=== PATIENT | male | born 1950 | race Caucasian/White ===

== ENCOUNTER → 2017-10-08 | Outpatient (CLI) | payer MEDICARE, OTHER, SELFPAY | PROVIDERS: Family Provider Family Medicine; Visit Provider Internal Medicine Cardiovascular Disease | DX: R06.02 Shortness of breath (principal); J44.9 Chronic obstructive pulmonary disease, unspecified; R53.82 Chronic fatigue, unspecified | CPT/HCPCS: 36415; 85651; 86038; 86431; 93017; 93306; 94060; 94640; 94727; 94729 ==

== ENCOUNTER → 2017-11-07 06:11 | Outpatient (CLI) | payer MEDICARE, OTHER, SELFPAY ==
--- NOTE | 2017-11-07 06:22 | NM_ITS ---
History and Indications: Hypertension, tobacco use, family history and fatigue Procedure: Patient exercised on Jose Rafael protocol, resting heart rate was 55 bpm, resting blood pressure 146/79, with exercise maximum heart rate achieved was 120 beats per minutes, which is equal to 79% of the maximum predicted heart rate and a blood pressure was 205/86. Test was started due to shortness of breath and fatigue, patient has good exercise capacity achieved 10.1mets of workload on treadmill, the blood pressure response to exercise was hypertensive. Patient did not achieve the target heart rate. Electrocardiogram: Resting electrocardiogram showed the sinus rhythm, with exercise there is less than [address] segment depression noted from the baseline EKG. More pronounced in the recovery. The EKG portion of the exercise Myoview is positive for ischemia. Cardiac stress and resting SPECT images: Cardiac stress and resting SPECT images were obtained using technetium 99 Myoview 10.7 mCi at rest and 31.7 mCi at stress, gated SPECT further analysis of segmental wall motion and calculation of the ejection fraction also done. Cardiac stress and rest reduced tracer activity in the inferior and posterobasal wall which partially improves on the resting images suggestive of scar, computer derived ejection fraction is 57% moderate inferior and posterobasal wall hypokinesis. Right ventricle is mildly enlarged with normal contractility. Conclusion: 1. The EKG portion of the exercise Myoview is positive for ischemia, patient has good exercise capacity achieved 10.1mets of workload on treadmill, the blood pressure response to exercise was hypertensive. Patient did not achieve the target heart rate. Test was started due to shortness of breath. 2. Scintigraphic evidence of mixed ischemia and scar involving the inferior and posterobasal wall. Computer derived ejection fraction is 57% with segmental wall motion abnormality described above, right ventricle is mildly enlarged with normal contractility. 3. Abnormal exercise Myoview study.
--- NOTE | 2017-11-07 09:12 | HMH.ITSHM ---
escitalopram, hctz, amlodipine
== END ==
PROVIDERS: Family Provider Family Medicine; PCP Family Medicine; Visit Provider Internal Medicine Cardiovascular Disease
DX: R53.82 Chronic fatigue, unspecified (principal); J44.9 Chronic obstructive pulmonary disease, unspecified; R94.39 Abnormal result of other cardiovascular function study; R06.02 Shortness of breath
CPT/HCPCS: 78452; 93017; A9502

== ENCOUNTER 2020-10-01 10:38 | Emergency (ER) | payer MEDICARE, OTHER, SELFPAY ==
[2020-10-01 10:53] VITALS: BP 153/82; PULSE 100; RESP 18; TEMP 37; O2SAT 98; BMI 27.3
--- NOTE | 2020-10-01 10:58 | HMH.EDGENADL ---
ED Disposition Clinical Impression: Pancreatitis, acute Qualifiers: Pancreatitis type: alcohol induced Acute pancreatitis complication: unspecified Qualified Code(s): K85.20 - Alcohol induced acute pancreatitis without necrosis or infection Disposition: Home, Self-Care Condition on Discharge: Good Instructions: DI for Acute Abdomen Additional Instructions: Please follow a clear liquid diet over the next several days and use nausea medicine. Try to avoid alcohol intake. Immediately return to our emergency department if any intractable nausea/vomiting, recurrent pain, fever/chills, concern for dehydration, change in activity level, or any other new concerning symptoms. Referrals: Iris Westbrook MD [Primary Care Provider] - - Critical Care Critical Care Time: No Attestation: On , the high probability of a clinically significant, sudden or life threatening deterioration of the following system(s) required my full and direct attention, intervention and personal management. The time I documented below is in addition to time spent performing reported procedures but includes the following listed in this critical care notation. Medical Decision Making - Medical Records Medical records reviewed: Yes: I reviewed the patient's medical records. - Moise Inquiry Pt receiving controlled substance: Yes Moise was queried for this patient: No (morphine for acute abd pain in the ER) Reason not queried -: Emergent pt cond-no time Risks and benefits of using a controlled substance: were discussed with pt by me Vital Signs: 10/01/20 10:53 10/01/20 12:50 Temperature 98.6 F Temperature Source Oral Pulse Rate [Right Radial] 100 H 89 Respiratory Rate 18 18 Blood Pressure [Right Arm] 153/82 H 145/84 H Blood Pressure Mean [Right Arm] 105 104 Blood Pressure Source [Right Arm] Automatic Cuff Automatic Cuff Blood Pressure Position [Right Arm] Sitting Sitting 02 Sat by Pulse Oximetry 98 95 Oxygen Delivery Method Room Air Room Air - Lab Data Lab Results 10/01/20 11:11: Urine Color Yellow, Urine Appearance Clear, Urine pH 6.5, Ur Specific [place] 1.020, Urine Protein Negative, Urine Glucose (UA) Negative, Urine Ketones Negative, Urine Blood Negative, Urine Nitrate Negative, Urine Bilirubin Negative, Urine Urobilinogen 1.0, Ur Leukocyte Esterase Trace, Urine RBC None, Urine WBC 5-10, Ur Squamous Epith Cells 10-20, Urine Bacteria None, Urine Mucus 1+ 10/01/20 11:11: WBC 13.1 H, RBC 5.71, Hgb 20.2 H*, Hct 59.5 H, MCV 104.3 H, MCH 35.4 H, MCHC 34.0, RDW 16.2, Plt Count 217, MPV 8.2, Neut % (Auto) 85.5 H, Lymph % (Auto) 8.3 L, [place] % (Auto) 5.2, Eos % (Auto) 0.7, Baso % (Auto) 0.4, Neut # (Auto) 11.2 H, Lymph # (Auto) 1.1, [place] # (Auto) 0.7, Eos # (Auto) 0.1, Baso # (Auto) 0.1, Total Counted 100, Neutrophils % (Manual) 89 H, Lymphocytes % (Manual) 6 L, Monocytes % (Manual) 5, Platelet Estimate Normal, Anisocytosis 1+, Macrocytosis 1+ 10/01/20 11:11: Sodium 135 L, Potassium 3.4 L, Chloride 100, Carbon Dioxide 28, Anion Gap 10.4, BUN 14, Creatinine 0.70, Estimated Creat Clear 78, Estimated GFR 111, Est GFR ( Amer) 135, Glucose 120 H, Calcium 11.1 H, Total Bilirubin 2.2 H, AST 22, ALT 18, Alkaline Phosphatase 123, Total Protein 7.3, Albumin 4.0, Globulin 3.3 H, Albumin/Globulin Ratio 1.2 10/01/20 11:11: Lipase 1781 H 10/01/20 11:50: Lactate 1.6 Result diagrams: 10/01/20 11:11 10/01/20 11:11 Orders (Tests/Meds): ED MEDICATIONS Discontinued Medications Generic Name Dose Route Start Last Admin Trade Name Freq PRN Reason Stop Dose Admin Lactated Ringer's 1,000 mls @ 999 mls/hr 10/01/20 11:15 10/01/20 12:11 Lactated Ringer's 1000 Ml Bag IV 10/01/20 12:15 999 mls/hr .Q1H1M IBAN Administration Iopamidol 75 ml 10/01/20 12:12 10/01/20 12:13 Iopamidol-370 (76%);100ml Bottle IV 10/01/20 12:13 75 ml ONCE ONE Administration Ondansetron HCl 4 mg 10/01/20 11:15 10/01/20 12:11 Ondansetron 4mg/2ml Vial IV 10/01/20 11:1
[2020-10-01 11:11] LABS: Appearance,Urine CLEAR (Clear); Bilirubin,Urine Negative (Negative); Blood, Urine Negative (Negative); Color,Urine YELLOW (Yellow); Glucose,Urine (UA) Negative (Negative); Ketones,Urine Negative (Negative); Leukocyte Esterase,Urine TRACE (Negative); Microscopic, Urine URINE MICROSCOPIC (MICROSCOPIC); Nitrate,Urine Negative (Negative); PH,Urine 6.5 (5.0-8.5); Protein,Urine Negative (Negative)
--- NOTE | 2020-10-01 11:13 | CT_ITS ---
PROCEDURE: CT ABDOMEN PELVIS W CON CLINICAL INDICATION: abdominal pain epigastric/left sided pain w/hernia COMPARISON: CT ABDPELW/O CT ABD PELVIS W/O CONTRAST from 04/29/2017 TECHNIQUE: IV Contrast: 75ML Isovue 350 Oral Contrast none given Axial images obtained with sagittal and coronal reformats. All CT scans at the facility use one or more dose reduction, viz: automated exposure control, ma/kV adjustment per patient size (including targeted exams where dose is matched to indication, i.e. head), or iterative reconstruction technique. FINDINGS: Lower thorax: No acute finding ABDOMEN: Liver: The liver is normal in size. There is a small hypodense lesion consistent with a hepatic cyst which actually appears smaller than seen on the previous CT scan abdomen pelvis 04/29/2017 Gallbladder: Nondistended. No radio opaque stones. Pancreas: The pancreas is normal overall size. There is moderate peripancreatic fat stranding around the distal body and tail extending to the left para renal fascia suggesting early acute pancreatitis. Spleen: unremarkable Adrenals: unremarkable Kidneys/ureters: The kidneys are normal in size and show symmetrical function both appearing normal. ABDOMEN & PELVIS: Stomach bowel: The stomach appears grossly normal. There is mild diffuse dilatation of the duodenal sweep with mild dilatation of the proximal jejunum likely reflecting a reflex ileus secondary to the inflammatory pancreatic changes. The mid and distal small bowel appear normal. There is scattered stool and gas seen throughout the colon. Peritoneum: No abnormal fluid collections. No obvious inflammatory changes. No free air. Lymph nodes: No enlarged lymph nodes apparent. Vasculature: There is prominent diffuse arthrosclerotic calcifications of the abdominal aorta and proximal common iliac arteries but there is no aneurysm. Bones: There are metallic brackets and pedicle screws fusing L 3 and L4. there are mild degenerate changes of both hips. PELVIS: Reproductive: unremarkable Bladder: The bladder is partially decompressed but appears normal. The prostate is markedly enlarged causing extrinsic mass effect on the base of the urinary bladder. There is a small right inguinal hernia containing mesenteric but no loops of bowel. Appendix: Unremarkable. No distention or periappendiceal phlegmonous change. IMPRESSION: Findings suggesting early acute pancreatitis involving the tail the pancreas with mild reflex ileus of the duodenal sweep and proximal jejunum Dictated by: Dr. Prashant Early MD 10/01/2020 12:25 Dr. Prashant Early MD in [place] 10/01/2020 12:25
[2020-10-01 11:16] LABS: Mucus,Urine 1+ /lpf
[2020-10-01 11:31] LABS: Eosinophils # 0.1 K/mm3 (0.0-0.4); Lymphocytes # 1.1 K/mm3 (0.7-4.5)
[2020-10-01 11:35] LABS: Basophils # 0.1 K/mm3 (0-0.2); Basophils % 0.4 % (0.1-2.0); Eosinophils % 0.7 % (0.1-12.0); Hematocrit 59.5 % (42.0-52.0); Lymphocytes % 8.3 % (10-50); Mean Corpuscular Hemoglobin 35.4 pg (27.0-31.2); Mean Corpuscular Volume 104.3 fl (80-94); Mean Platelet Volume 8.2 fl (7.4-10.4); Monocytes # 0.7 K/mm3 (0.1-1.0); Monocytes % 5.2 % (1.7-9.3); Neutrophils # 11.2 K/mm3 (1.8-7.8); Neutrophils % 85.5 % (37.0-80.0); Platelet Count 217 K/mm3 (142-424); Red Blood Count 5.71 M/mm3 (4.60-6.20); Red Cell Distribution Width 16.2 % (11.5-17.5); White Blood Count 13.1 K/mm3 (4.8-10.8)
[2020-10-01 11:36] LABS: Alanine Aminotransferase 18 U/L (12-78); Albumin/Globulin Ratio 1.2 (1.1-1.8); Alkaline Phosphatase 123 U/L (38-126); Anion Gap 10.4 mEq/L (5-15); Aspartate Amino Transferase 22 U/L (17-59); Bilirubin,Total 2.2 mg/dl (0.2-1.3); Blood Urea Nitrogen 14 mg/dl (9-20); Calcium 11.1 mg/dl (8.4-10.2); Carbon Dioxide 28 mmol/L (22.0-30.0); Chloride 100 mmol/L (98-107); Creatinine Clearance Estimated 78 mL/min (50-200); Estimated Glomerular Filt Rate 111 ml/min (>60); GFR (African American) 135 ML/MIN (>60); Globulin 3.3 g/dL (1.3-3.2); Glucose 120 mg/dl (74-100); Hemoglobin 20.2 g/dL (14.1-18.0); Lipase 1781 U/L (23-300); Potassium 3.4 mmoL/L (3.5-5.1); Sodium 135 mmol/L (136-145); Total Protein,Serum 7.3 g/dl (6.3-8.2)
--- NOTE | 2020-10-01 11:36 | PC.NURSE ---
critical high hgb notified to DAYSI MCQUEEN at this time
[2020-10-01 11:37] LABS: MANUAL DIFFERENTIAL MANUAL DIFFERENTIAL (MANUAL DIFF)
[2020-10-01 11:48] LABS: Anisocytosis 1+; Lymphocytes % 6 % (10-50); Macrocytosis 1+; Monocytes % 5 % (2-9); Neutrophils % 89 % (42-76); Platelet Estimate Normal; Total Cells Counted 100
--- NOTE | 2020-10-01 11:53 | PC.NURSE ---
PT GONE FOR CT
[2020-10-01 12:05] LABS: Lactic Acid 1.6 mmol/L (0.7-2.1)
--- NOTE | 2020-10-01 12:09 | PC.NURSE ---
pt return from CT
--- NOTE | 2020-10-01 12:27 | PC.NURSE ---
when administering medication IV would not flush, attempting to obtain new IV access at this time
[2020-10-01 12:50] VITALS: BP 145/84; PULSE 89; RESP 18; O2SAT 95
[2020-10-01 13:47] VITALS: BP 170/95; PULSE 80; RESP 17; TEMP 37.2; O2SAT 100
== END 2020-10-01 13:48 | disposition home or self-care (01) ==
PROVIDERS: Emergency Provider Emergency Medicine; PCP Nurse Practitioner
DX: K85.20 Alcohol induced acute pancreatitis without necrosis or infection (principal); F17.210 Nicotine dependence, cigarettes, uncomplicated; I10 Essential (primary) hypertension; F33.1 Major depressive disorder, recurrent, moderate; Z79.899 Other long term (current) drug therapy
CPT/HCPCS: 74177; 80053; 81001; 83605; 83690; 85007; 85025; 96365; 96375; 99283; J2405; Q9967

== ENCOUNTER → 2021-04-07 08:22 | Outpatient (CLI) | payer MEDICARE, OTHER, SELFPAY ==
--- NOTE | 2021-04-07 08:29 | MR_ITS ---
PROCEDURE INFORMATION: Exam: MR Lumbar Spine Without Contrast Exam date and time: 04/07/2021 8:29 AM Age: 70 years old Clinical indication: Low back pain and lumbago; Prior surgery; Surgery date: 6+ months; Patient HX: PT C/O lbp with bilateral lower extremity numbness, tingling, and pain. PT has HX of lumbar surgery x 3. ; Additional info: Lbp with HX of lumbar surgery TECHNIQUE: Imaging protocol: Multiplanar magnetic resonance images of the lumbar spine without intravenous contrast. COMPARISON: [facility] [place] 04/05/2015 9:59 AM FINDINGS: alignment is grossly normal. signal intensity within the bone marrow is normal. conus terminates at the mid aspect of L1. Soft tissues are unremarkable. surgical plate and pedicle screws L3 and L4 Interbody fusion L3-L4 and L4-L5 Severe neural foraminal narrowing L5-S1 left greater than right No marrow edema L1-L2: Central canal and neural foramina are widely patent. L2-L3: Central canal and neural foramina are widely patent. L3-L4: Central canal is normal. Narrowing of the left neural foramina with paucity of fat about the exiting nerve root. L4-L5: Broad-based annular disc bulge effaces the anterior aspect of the thecal sac mildly so. Moderate narrowing of the right neural foramina. Left neural foramina normal. L5-S1: Disc and or osteophytic complex effaces the anterior aspect of the thecal sac. Disc and or osteophytic complex narrows the neural foramina severely so left greater than right IMPRESSION: Prior interbody fusion L3-L4 and L4-L5. Severe neural foraminal narrowing L5-S1 left greater than right. See above.
== END ==
PROVIDERS: PCP Nurse Practitioner; Visit Provider Nurse Practitioner
DX: M54.5 Low back pain (principal); G89.29 Other chronic pain
CPT/HCPCS: 72148; 76376

== ENCOUNTER 2021-04-22 14:44 | Inpatient (IN) | payer MEDICARE, OTHER, SELFPAY ==
[2021-04-22 14:45] VITALS: BP 144/85; PULSE 92; RESP 16; TEMP 37.1; O2SAT 98; BMI 27.3
--- NOTE | 2021-04-22 15:03 | HMH.EDGENADL ---
ED Disposition Clinical Impression: Epididymo-orchitis, Hypokalemia, Hypomagnesemia Sepsis Qualifiers: Sepsis type: sepsis due to unspecified organism Sepsis acute organ dysfunction status: without acute organ dysfunction Qualified Code(s): A41.9 - Sepsis, unspecified organism Disposition: Admitted as Observation Condition on Discharge: [facility] Critical Care Critical Care Time: No Attestation: On 04/22/21, the high probability of a clinically significant, sudden or life threatening deterioration of the following system(s) required my full and direct attention, intervention and personal management. The time I documented below is in addition to time spent performing reported procedures but includes the following listed in this critical care notation. Medical Decision Making - Medical Records Medical records reviewed: Yes: I reviewed the patient's medical records. MR Comment: Reviewed most recent office visit Dr. Jordan. Right sided epididymitis on 04/28/2021. Discussed with the patient. He says at that time, his testicle was not swollen half as much as it is today. - Moise Inquiry Pt receiving controlled substance: Yes Moise was queried for this patient: Yes Risks and benefits of using a controlled substance: were not discussed with pt by me Vital Signs: 04/22/21 14:45 04/22/21 16:56 04/22/21 17:47 Temperature 98.7 F 98.4 F Temperature Source Oral Oral Pulse Rate 92 H Pulse Rate [Radial] 92 H Respiratory Rate 16 16 Blood Pressure 104/63 L Blood Pressure [Right Arm] 144/85 H Blood Pressure Mean [Right Arm] 104 Blood Pressure Source [Right Arm] Blood Pressure Position [Right Arm] Sitting 02 Sat by Pulse Oximetry 98 Oxygen Delivery Method Room Air Room Air Room Air 04/22/21 17:49 Temperature 98.7 F Temperature Source Oral Pulse Rate Pulse Rate [Radial] 78 Respiratory Rate 18 Blood Pressure Blood Pressure [Right Arm] 124/71 Blood Pressure Mean [Right Arm] 88 Blood Pressure Source [Right Arm] Automatic Cuff Blood Pressure Position [Right Arm] 02 Sat by Pulse Oximetry 94 L Oxygen Delivery Method Room Air - Lab Data Lab Results 04/22/21 14:50: Urine Color Yellow, Urine Appearance Cloudy, Urine pH 7.0, Ur Specific [place] 1.015, Urine Protein 1+, Urine Glucose (UA) Negative, Urine Ketones Negative, Urine Blood 3+, Urine Nitrate Negative, Urine Bilirubin 1+ A, Urine Urobilinogen 1.0, Ur Leukocyte Esterase 3+ A, Urine RBC 20-50, Urine WBC 20-50, Ur Squamous Epith Cells 3-5, Amorphous Sediment 1+, Urine Bacteria None 04/22/21 15:00: WBC 17.3 H, RBC 5.10, Hgb 17.1, Hct 49.5, MCV 96.9 H, MCH 33.4 H, MCHC 34.5, RDW 16.3, Plt Count 220, MPV 9.4, Neut % (Auto) 90.2 H, Lymph % (Auto) 4.8 L, [place] % (Auto) 3.4, Eos % (Auto) 1.4, Baso % (Auto) 0.3, Neut # (Auto) 15.6 H, Lymph # (Auto) 0.8, [place] # (Auto) 0.6, Eos # (Auto) 0.2, Baso # (Auto) 0.1, Total Counted 100, Neutrophils % (Manual) 83 H, Lymphocytes % (Manual) 11, Monocytes % (Manual) 6, Platelet Estimate Normal, RBC Morphology Normal 04/22/21 15:00: Sodium 137, Potassium 2.5 L*, Chloride 99, Carbon Dioxide 30, Anion Gap 10.5, BUN 15, Creatinine 0.60 L, Estimated Creat Clear 78, Estimated GFR 133, Est GFR ( Amer) 161, Glucose 149 H, Calcium 10.8 H, Total Bilirubin 2.1 H, AST 24, ALT 30, Alkaline Phosphatase 146 H, Total Protein 6.8, Albumin 3.9, Globulin 2.9, Albumin/Globulin Ratio 1.3 04/22/21 15:00: Lactate 2.9 H 04/22/21 15:00: Magnesium 1.5 L 04/22/21 16:40: SARS-CoV-2 (PCR) Not detected, Influenza A Untype (PCR) Not detected, Influenza Type B (PCR) Not detected Result diagrams: 04/22/21 15:00 04/22/21 15:00 Orders (Tests/Meds): ED MEDICATIONS Generic Name Dose Route Start Last Admin Trade Name Freq PRN Reason Stop Dose Admin Acetaminophen 650 mg 04/22/21 17:43 Acetaminophen 325mg Tab PO 05/22/21 17:42 Q4HP PRN Fever or Mild Pain Levofloxacin/Dextrose 750 mg in 150 mls @ 100 mls/hr 04/23/21 15:30 Levoflox
[2021-04-22 15:08] LABS: Microscopic, Urine URINE MICROSCOPIC (MICROSCOPIC)
[2021-04-22 15:09] LABS: Appearance,Urine CLOUDY (Clear); Blood, Urine 3+ (Negative); Color,Urine YELLOW (Yellow); Glucose,Urine (UA) Negative (Negative); Ketones,Urine Negative (Negative); Leukocyte Esterase,Urine 3+ (Negative); Nitrate,Urine Negative (Negative); Protein,Urine 1+ (Negative); Specific Gravity, Urine 1.015 (1.005-1.030)
[2021-04-22 15:12] LABS: Bilirubin,Urine 1+ (Negative)
--- NOTE | 2021-04-22 15:12 | US_ITS ---
PROCEDURE INFORMATION: Exam: US Scrotum and Artery or Vein of the Abdominal and/or Reproductive Organs, Limited Scrotum Exam date and time: 04/22/2021 3:12 PM Age: 70 years old Clinical indication: Inflammation and swelling, testicles or scrotum; Patient HX: Swelling and redness RT testicle; Additional info: Scrotal pain and swelling no injury TECHNIQUE: Imaging protocol: Real-time ultrasound of the scrotum. Real-time duplex ultrasound scan of the arterial or venous flow with lennon scale, color Doppler flow and spectral waveform analysis with image documentation. Limited Duplex exam focused of the scrotum. Duplex images required to evaluate for torsion and other vascular conditions. COMPARISON: CT ABDOMEN PELVIS W CON 10/01/2020 11:54 AM FINDINGS: Right testicle: Right testicle measures 2.5 x 4.2 x 3.4 cm. Mild increased blood flow is noted to the right testicle and epididymis consistent with mild epididymal orchitis. Left testicle: Left testicle measures 2.0 x 4.1 x 2.2 cm. Scrotum: Mild right hydrocele. Other findings: No intratesticular masses. Blood flow is demonstrated to both testicles. No evidence of testicular torsion. IMPRESSION: 1. No intratesticular masses. 2. No evidence of testicular torsion. 3. Mild right hydrocele. 4. Mild increased blood flow is noted to the right testicle and epididymis consistent with mild epididymal orchitis.
--- NOTE | 2021-04-22 15:14 | PC.NURSE ---
chad called for US of scrotum
[2021-04-22 15:18] LABS: Amorphous Sediment,Urine 1+ /lpf; RBC,Urine 20-50 #/hpf (0-3); WBC,Urine 20-50 #/hpf (0-3)
[2021-04-22 15:22] LABS: Basophils # 0.1 K/mm3 (0-0.2); Basophils % 0.3 % (0.1-2.0); Eosinophils # 0.2 K/mm3 (0.0-0.4); Eosinophils % 1.4 % (0.1-12.0); Hematocrit 49.5 % (42.0-52.0); Hemoglobin 17.1 g/dL (14.1-18.0); Lymphocytes # 0.8 K/mm3 (0.7-4.5); Lymphocytes % 4.8 % (10-50); Mean Corpuscular HGB Conc 34.5 g/dL (31.8-35.4); Mean Corpuscular Hemoglobin 33.4 pg (27.0-31.2); Mean Corpuscular Volume 96.9 fl (80-94); Mean Platelet Volume 9.4 fl (7.4-10.4); Monocytes # 0.6 K/mm3 (0.1-1.0); Monocytes % 3.4 % (1.7-9.3); Neutrophils # 15.6 K/mm3 (1.8-7.8); Neutrophils % 90.2 % (37.0-80.0); Platelet Count 220 K/mm3 (142-424); Red Cell Distribution Width 16.3 % (11.5-17.5); White Blood Count 17.3 K/mm3 (4.8-10.8)
[2021-04-22 15:24] LABS: MANUAL DIFFERENTIAL MANUAL DIFFERENTIAL (MANUAL DIFF)
[2021-04-22 15:29] LABS: Chloride 99 mmol/L (98-107)
[2021-04-22 15:30] LABS: Sodium 137 mmol/L (136-145)
[2021-04-22 15:32] LABS: Alanine Aminotransferase 30 U/L (12-78); Alkaline Phosphatase 146 U/L (38-126); Anion Gap 10.5 mEq/L (5-15); Aspartate Amino Transferase 24 U/L (17-59); Bilirubin,Total 2.1 mg/dl (0.2-1.3); Blood Urea Nitrogen 15 mg/dl (9-20); Calcium 10.8 mg/dl (8.4-10.2); Carbon Dioxide 30 mmol/L (22.0-30.0); Creatinine Clearance Estimated 78 mL/min (50-200); Estimated Glomerular Filt Rate 133 ml/min (>60); GFR (African American) 161 ML/MIN (>60); Glucose 149 mg/dl (74-100)
[2021-04-22 15:33] LABS: Albumin Level 3.9 g/dl (3.5-5.0); Albumin/Globulin Ratio 1.3 (1.1-1.8); Globulin 2.9 g/dL (1.3-3.2); Lactic Acid 2.9 mmol/L (0.7-2.1); Total Protein,Serum 6.8 g/dl (6.3-8.2)
[2021-04-22 15:34] LABS: Potassium 2.5 mmoL/L (3.5-5.1)
[2021-04-22 15:35] LABS: Lymphocytes % 11 % (10-50); Monocytes % 6 % (2-9); Neutrophils % 83 % (42-76); Platelet Estimate Normal; RBC Morphology Normal; Total Cells Counted 100
--- NOTE | 2021-04-22 15:35 | PC.NURSE ---
Critical labs called per Yocasta in Lab, K+ 2.5, Read back and verified per this nurse.
[2021-04-22 15:45] LABS: Magnesium 1.5 mg/dl (1.6-2.3)
--- NOTE | 2021-04-22 15:46 | ECG_ITS ---
APPROVED REPORT Exam: Resting ECG HR:84 bpm ECG Measurements Heart Rate 84 AXES OK 170 P 61 QRSd 100 QRS 85 QT 402 T 22 QTc 475 Conclusion Normal sinus rhythm Old septal changes Abnormal ECG Electronically signed by : Estuardo Alarcon, 04/23/2021 17:44:06
--- NOTE | 2021-04-22 15:54 | PC.NURSE ---
patient to ultrasound
--- NOTE | 2021-04-22 16:18 | PC.NURSE ---
patient returned from ultrasound
[2021-04-22 17:03] LABS: Coronavirus 19, PCR Not Detected (NotDetected); Influenza A, PCR Not Detected (NotDetected); Influenza B, PCR Not Detected (NotDetected)
[2021-04-22 17:47] VITALS: BP 104/63; PULSE 92; RESP 16; TEMP 36.9; O2SAT 94
[2021-04-22 17:49] VITALS: BP 124/71; PULSE 78; RESP 18; TEMP 37.1; O2SAT 94; BMI 25.1
[2021-04-22 19:18] LABS: Reflex Lactic Add Lactic Reflex
[2021-04-22 20:00] VITALS: BP 143/81; PULSE 70; RESP 18; TEMP 37.1; O2SAT 97
[2021-04-23 04:00] VITALS: BP 115/73; PULSE 74; RESP 18; TEMP 37.1
[2021-04-23 05:00] VITALS: BMI 25.0
--- NOTE | 2021-04-23 06:07 | PC.NURSE ---
Patient c/o pain and requested pain x 2. NPO since midnight. Shows no s/s of acute distress noted at this time. Bed at lowest level for safety, call light within reach; will continue to monitor.
[2021-04-23 06:41] LABS: Eosinophils # 0.2 K/mm3 (0.0-0.4); Lymphocytes # 1.1 K/mm3 (0.7-4.5)
[2021-04-23 06:46] LABS: Basophils % 0.3 % (0.1-2.0); Eosinophils % 1.4 % (0.1-12.0); Hematocrit 42.5 % (42.0-52.0); Hemoglobin 14.5 g/dL (14.1-18.0); Lymphocytes % 7.4 % (10-50); Mean Corpuscular HGB Conc 34.1 g/dL (31.8-35.4); Mean Corpuscular Volume 99.7 fl (80-94); Mean Platelet Volume 9.3 fl (7.4-10.4); Monocytes # 0.7 K/mm3 (0.1-1.0); Neutrophils # 12.6 K/mm3 (1.8-7.8); Neutrophils % 85.9 % (37.0-80.0); Platelet Count 182 K/mm3 (142-424); Red Blood Count 4.26 M/mm3 (4.60-6.20); Red Cell Distribution Width 15.3 % (11.5-17.5); White Blood Count 14.7 K/mm3 (4.8-10.8)
[2021-04-23 06:47] LABS: MANUAL DIFFERENTIAL MANUAL DIFFERENTIAL (MANUAL DIFF)
[2021-04-23 07:04] LABS: Anion Gap 6.2 mEq/L (5-15); Blood Urea Nitrogen 19 mg/dl (9-20); Carbon Dioxide 29 mmol/L (22.0-30.0); Chloride 105 mmol/L (98-107); Creatinine Clearance Estimated 72 mL/min (50-200); Estimated Glomerular Filt Rate 133 ml/min (>60); GFR (African American) 161 ML/MIN (>60); Glucose 114 mg/dl (74-100); Magnesium 1.5 mg/dl (1.6-2.3); Potassium 3.2 mmoL/L (3.5-5.1); Sodium 137 mmol/L (136-145)
--- NOTE | 2021-04-23 07:40 | HMH.PHAVTE ---
[facility] Pharmacy VTE Monitoring - Patient Demographics Admission date: 04/22/21 Report Date: 04/23/21 Time: 07:40 Allergies/Adverse Reactions: Patient Allergies No Known Allergies Allergy (Unverified 04/28/20 16:09) Height: 1.73 m Weight: 74.984 kg Patient Problems: Current Active Problems Epididymo-orchitis (Acute) Sepsis (Acute) Hypokalemia (Acute) Hypomagnesemia (Acute) - VTE Risk Labs: VTE Related Lab Results Hgb 14.5 g/dL (14.1-18.0) D 04/23/21 06:20 Hct 42.5 % (42.0-52.0) 04/23/21 06:20 Plt Count 182 K/mm3 (142-424) 04/23/21 06:20 BUN 19 mg/dl (9-20) D 04/23/21 06:20 Creatinine 0.60 mg/dl (0.66-1.25) L 04/23/21 06:20 Estimated Creat Clear 72 mL/min (50-200) 04/23/21 06:20 - Prophylaxis VTE Prophylaxis Ordered?: Yes Types of VTE Prophylaxis: TEDS Knee High Location of Applied Device: Bilateral Lower Extremeties
--- NOTE | 2021-04-23 07:45 | HMH.PHAINT ---
MEDICATION RECONCILIATION COMPLETED ON PATIENT USING EXTERNAL FILL HISTORY FROM PHARMACY. -JER HERNANDEZ, BLUED
[2021-04-23 08:00] VITALS: BP 122/71; PULSE 66; RESP 24; TEMP 36.8; O2SAT 98
[2021-04-23 08:23] LABS: Lymphocytes % 8 % (10-50); Monocytes % 3 % (2-9); Neutrophils % 88 % (42-76); Nucleated Red Blood Cells 2; Total Cells Counted 100
[2021-04-23 08:24] LABS: Hypochromasia 1+; Platelet Estimate Normal
--- NOTE | 2021-04-23 09:10 | HMH.HP ---
*Admission Date: 04/22/21 *Chief complaint: GROIN PAIN *History of present illness: 70 yr old male presents to ED with c/o of groin pain. Patient states he believes he has a kidney or prostate infection. Pt states pain in his right testicle for 1 week, swelling of the right testicle began last night with dysuria for 4 days. Had chills yesterday, thinks he might have had a fever, but temperature not taken. Prior history of prostate infections pt states he has seen Dr. Jordan and Dr. Bojorquez.Pt admitted for urology consult and iv antibiotics. With close monitoring of infection [facility] History I have reviewed the patient's past medical history: Yes Medical History: Reports:: Anxiety, Hypertension Denies:: Diabetes Mellitus Type 1, Diabetes Mellitus Type 2 *Have you ever received a pneumonia vaccine?: Yes *Have you received a flu vaccine this season?: Yes Other Surgeries: Yes: No Previous Surgery Amputation: No Fractures: No - *Social History Last grade of school completed: High school graduate Smoking Status: Current every day smoker Tobacco Type: cigarettes # Packs/Day (cigarettes): 1 Alcohol Intake: never Substance Use Type: denies use *Occupational Status:: employed Household Members: spouse *Travel in the last 8 weeks: None - Psychiatric History Pschychiatric History:: Reports:: Anxiety Family Hx:: No significant family history Review of Systems - Review of Systems Review of systems:: pertinent systems reviewed and negative unless documented below - Constitutional Denies body ache(s) - Eyes Denies blurry vision - ENT Denies bleeding gums - *Cardiovascular Denies chest pain at rest - *Respiratory Denies excessive phlegm production - *Gastrointestinal Denies abdominal pain - *Genitourinary Reports painful urination, Reports genital pain, Reports scrotal swelling, Reports testicle pain - *Musculoskeletal Denies joint pain - Integumentary/Breasts Denies bleeding lesions - *Neurologic Denies dizziness - Psychiatric Denies lack of enjoyment - Endocrine Denies increased hunger - Hematologic/Lymphatic Denies easy bruising - Allergic/Immunologic Denies itchy eyes Meds Home Medications Medication Instructions Recorded Confirmed Type Amlodipine Besylate 5 mg PO DAILY 10/01/20 04/22/21 History hydroCHLOROthiazide [HCTZ 25mg 25 mg PO DAILY 10/01/20 04/22/21 History tab] Escitalopram Oxalate 20 mg PO DAILY 04/23/21 04/23/21 History Hydrocodone/Acetaminophen 1 tab PO DAILYP PRN 04/23/21 04/23/21 History [Hydrocodone-Acetamin 7.5-325] Ibuprofen [Ibuprofen 800mg 800 mg PO TIDP PRN 04/23/21 04/23/21 History Tablet] Allergies Allergy/AdvReac Type Severity Reaction Status Date / Time No Known Allergies Allergy Unverified 04/28/20 16:09 Exam Vital signs and Labs for Last 24 Hours: Temp Pulse Resp BP Pulse Ox 98.3 F 66 24 122/71 98 04/23/21 08:00 04/23/21 08:00 04/23/21 08:00 04/23/21 08:00 04/23/21 08:00 Laboratory Results - last 24 hr 04/22/21 14:50: Urine Color Yellow, Urine Appearance Cloudy, Urine pH 7.0, Ur Specific [place] 1.015, Urine Protein 1+, Urine Glucose (UA) Negative, Urine Ketones Negative, Urine Blood 3+, Urine Nitrate Negative, Urine Bilirubin 1+ A, Urine Urobilinogen 1.0, Ur Leukocyte Esterase 3+ A, Urine RBC 20-50, Urine WBC 20-50, Ur Squamous Epith Cells 3-5, Amorphous Sediment 1+, Urine Bacteria None 04/22/21 15:00: WBC 17.3 H, RBC 5.10, Hgb 17.1, Hct 49.5, MCV 96.9 H, MCH 33.4 H, MCHC 34.5, RDW 16.3, Plt Count 220, MPV 9.4, Neut % (Auto) 90.2 H, Lymph % (Auto) 4.8 L, [place] % (Auto) 3.4, Eos % (Auto) 1.4, Baso % (Auto) 0.3, Neut # (Auto) 15.6 H, Lymph # (Auto) 0.8, [place] # (Auto) 0.6, Eos # (Auto) 0.2, Baso # (Auto) 0.1, Total Counted 100, Neutrophils % (Manual) 83 H, Lymphocytes % (Manual) 11, Monocytes % (Manual) 6, Platelet Estimate Normal, RBC Morphology Normal 04/22/21 15:00: Sodium 137, Potassium 2.5 L*, Chloride 99, Carbon Diox
--- NOTE | 2021-04-23 09:41 | PC.NURSE ---
Addendum entered by Diamante Ortega RN 04/23/21 09:47: Left message Martha Sepulveda RN at MD White's office regarding pt's + blood culture. Will return call if any new orders. Original Note: Verified name, , room number w/ Roberta Sky in the lab regarding pt's positive aerobic blood culture of gram positive cocci. No PCR available at this time.
[2021-04-23 10:13] LABS: Calcium 9.7 mg/dl (8.4-10.2)
--- NOTE | 2021-04-23 10:58 | HMH.PHACONS ---
- Pharmacy Consult Date: 04/23/21 Time: 10:58 Referring provider: DR. SAENZ Reason for Consult:: VANCOMYCIN DOSING FOR POSITIVE BLOOD CULTURE Allergies and ADEs:: Allergies Allergy/AdvReac Type Severity Reaction Status Date / Time No Known Allergies Allergy Unverified 04/28/20 16:09 Home Medications:: Home Medications Medication Instructions Recorded Confirmed Type Amlodipine Besylate 5 mg PO DAILY 10/01/20 04/22/21 History hydroCHLOROthiazide [HCTZ 25mg 25 mg PO DAILY 10/01/20 04/22/21 History tab] Escitalopram Oxalate 20 mg PO DAILY 04/23/21 04/23/21 History Hydrocodone/Acetaminophen 1 tab PO DAILYP PRN 04/23/21 04/23/21 History [Hydrocodone-Acetamin 7.5-325] Ibuprofen [Ibuprofen 800mg 800 mg PO TIDP PRN 04/23/21 04/23/21 History Tablet] Height: 1.73 m Weight: 74.984 kg Laboratory Results:: Laboratory Results - last 24 hr 04/22/21 14:50: Urine Color Yellow, Urine Appearance Cloudy, Urine pH 7.0, Ur Specific [place] 1.015, Urine Protein 1+, Urine Glucose (UA) Negative, Urine Ketones Negative, Urine Blood 3+, Urine Nitrate Negative, Urine Bilirubin 1+ A, Urine Urobilinogen 1.0, Ur Leukocyte Esterase 3+ A, Urine RBC 20-50, Urine WBC 20-50, Ur Squamous Epith Cells 3-5, Amorphous Sediment 1+, Urine Bacteria None 04/22/21 15:00: WBC 17.3 H, RBC 5.10, Hgb 17.1, Hct 49.5, MCV 96.9 H, MCH 33.4 H, MCHC 34.5, RDW 16.3, Plt Count 220, MPV 9.4, Neut % (Auto) 90.2 H, Lymph % (Auto) 4.8 L, [place] % (Auto) 3.4, Eos % (Auto) 1.4, Baso % (Auto) 0.3, Neut # (Auto) 15.6 H, Lymph # (Auto) 0.8, [place] # (Auto) 0.6, Eos # (Auto) 0.2, Baso # (Auto) 0.1, Total Counted 100, Neutrophils % (Manual) 83 H, Lymphocytes % (Manual) 11, Monocytes % (Manual) 6, Platelet Estimate Normal, RBC Morphology Normal 04/22/21 15:00: Sodium 137, Potassium 2.5 L*, Chloride 99, Carbon Dioxide 30, Anion Gap 10.5, BUN 15, Creatinine 0.60 L, Estimated Creat Clear 78, Estimated GFR 133, Est GFR ( Amer) 161, Glucose 149 H, Calcium 10.8 H, Total Bilirubin 2.1 H, AST 24, ALT 30, Alkaline Phosphatase 146 H, Total Protein 6.8, Albumin 3.9, Globulin 2.9, Albumin/Globulin Ratio 1.3 04/22/21 15:00: Lactate 2.9 H 04/22/21 15:00: Magnesium 1.5 L 04/22/21 16:40: SARS-CoV-2 (PCR) Not detected, Influenza A Untype (PCR) Not detected, Influenza Type B (PCR) Not detected 04/22/21 19:50: Lactate 2.0 04/23/21 06:20: WBC 14.7 H, RBC 4.26 L, Hgb 14.5 D, Hct 42.5, MCV 99.7 H, MCH 34.0 H, MCHC 34.1, RDW 15.3, Plt Count 182, MPV 9.3, Neut % (Auto) 85.9 H, Lymph % (Auto) 7.4 L, [place] % (Auto) 5.0, Eos % (Auto) 1.4, Baso % (Auto) 0.3, Neut # (Auto) 12.6 H, Lymph # (Auto) 1.1, [place] # (Auto) 0.7, Eos # (Auto) 0.2, Baso # (Auto) 0.0, Total Counted 100, Neutrophils % (Manual) 88 H, Band Neutrophils % 1.0, Lymphocytes % (Manual) 8 L, Monocytes % (Manual) 3, Nucleated RBCs 2, Platelet Estimate Normal, Hypochromasia 1+ 04/23/21 06:20: Sodium 137, Potassium 3.2 L D, Chloride 105, Carbon Dioxide 29, Anion Gap 6.2, BUN 19 D, Creatinine 0.60 L, Estimated Creat Clear 72, Estimated GFR 133, Est GFR ( Amer) 161, Glucose 114 H D, Calcium 9.7 D, Magnesium 1.5 L Medical History: Reports:: Anxiety, Hypertension Denies:: Diabetes Mellitus Type 1, Diabetes Mellitus Type 2 Assessment and Plan - Assessment and plan all Dx Assessment and Plan for all problems:: Subjective and Objective Data: This is a 70 year old Male patient with [insert PMH, infection source, and culture data here]. Measured serum creatinine (SCr) is 1 mg/dL. Given a height of 173 cm and a weight of 75 kg, estimated creatinine clearance is 71.9 mL/min (using the CrCl TBW body weight). The following targets were selected for dosing: - Desired AUC = 500 mcg*h/mL - Desired Cmax = 35 mcg/mL - Desired Cmin = 12.5 mcg/mL - Vd coefficient = 0.65 L/kg - Ke equation = CrCl*0.74349+0.0044 Calculations: Based on above, the following are calculated parameters for AUC-based vancomycin dosing in this patient:
[2021-04-23 16:00] VITALS: BP 124/59; PULSE 64; RESP 24; TEMP 37.3; O2SAT 95
[2021-04-23 20:00] VITALS: BP 131/67; PULSE 67; RESP 16; TEMP 37; O2SAT 93
[2021-04-24 04:00] VITALS: BP 134/76; PULSE 53; RESP 16; TEMP 36.9; O2SAT 93
[2021-04-24 04:47] VITALS: BMI 25.0
--- NOTE | 2021-04-24 05:59 | PC.NURSE ---
Patient NPO since midnight; has c/o of pain and received medication per MAR. Will continue to monitor.
[2021-04-24 07:22] LABS: Basophils # 0.1 K/mm3 (0-0.2); Basophils % 0.4 % (0.1-2.0); Eosinophils # 0.3 K/mm3 (0.0-0.4); Eosinophils % 1.9 % (0.1-12.0); Hematocrit 42.8 % (42.0-52.0); Hemoglobin 13.9 g/dL (14.1-18.0); Lymphocytes # 1.5 K/mm3 (0.7-4.5); Mean Corpuscular HGB Conc 32.5 g/dL (31.8-35.4); Mean Corpuscular Hemoglobin 32.6 pg (27.0-31.2); Mean Corpuscular Volume 100.5 fl (80-94); Mean Platelet Volume 9.8 fl (7.4-10.4); Monocytes # 0.8 K/mm3 (0.1-1.0); Monocytes % 6.5 % (1.7-9.3); Neutrophils # 10.2 K/mm3 (1.8-7.8); Neutrophils % 79.2 % (37.0-80.0); Platelet Count 193 K/mm3 (142-424); Red Blood Count 4.25 M/mm3 (4.60-6.20); Red Cell Distribution Width 15.3 % (11.5-17.5); White Blood Count 12.9 K/mm3 (4.8-10.8)
[2021-04-24 08:00] VITALS: BP 148/82; PULSE 71; RESP 18; TEMP 36.7; O2SAT 95
--- NOTE | 2021-04-24 09:02 | HMH.ACPN2 ---
Internal Medicine - PN: Subj *Date: 04/24/21 *Time: 10:10 Interval history: 70-year-old male patient sitting up in chair resting quietly, reports groin pain is better but alcohol still operator. Awaiting urology to see Exam Vital signs and Labs for Last 24 Hours: Temp Pulse Resp BP Pulse Ox 98.0 F 71 18 148/82 H 95 04/24/21 08:00 04/24/21 08:00 04/24/21 08:00 04/24/21 08:00 04/24/21 08:00 Laboratory Results - last 24 hr 04/23/21 06:20: Calcium 9.7 D 04/24/21 06:29: WBC 12.9 H, RBC 4.25 L, Hgb 13.9 L, Hct 42.8, MCV 100.5 H, MCH 32.6 H, MCHC 32.5, RDW 15.3, Plt Count 193, MPV 9.8, Neut % (Auto) 79.2, Lymph % (Auto) 12.0, [place] % (Auto) 6.5, Eos % (Auto) 1.9, Baso % (Auto) 0.4, Neut # (Auto) 10.2 H, Lymph # (Auto) 1.5, [place] # (Auto) 0.8, Eos # (Auto) 0.3, Baso # (Auto) 0.1 I & O for Last 24 hours: Intake & Output 04/21/21 04/22/21 04/23/21 04/24/21 23:59 23:59 23:59 23:59 Intake Total 360 / 420 2674 / 2674 1450 / 1450 Output Total 100 / 100 300 / 300 Balance 360 / 420 2574 / 2574 1150 / 1150 Weight 165 lb 5 oz 165 lb 4.983 oz 165 lb 4.983 oz Microbiology Reports for the Last 24 Hours: Microbiology 04/22/21 15:00 Blood Blood Culture - Preliminary Gram Positive Cocci 04/22/21 14:50 Urine,Clean Catch Urine Culture - Preliminary NO GROWTH AFTER 24 HOURS - Constitutional no acute distress - *Routine HEENT Exam Head: Present: normocephalic Eye: Present: EOMI ENT: Present: mucous membranes moist - *Routine Neck Exam Present: trachea midline. Absent: tenderness, tracheal deviation - *Routine Respiratory Exam Present: CTA bilaterally. Absent: accessory muscle use - *Routine Cardiovascular Exam Present: RRR - *Routine Abdominal Exam Present: soft, normoactive bowel sounds. Absent: tenderness, firm - *Routine Exam Testicular: Right swelling, Right tenderness Scrotal: Present: swelling - *Routine Extremities Exam Present: full ROM, pulses intact. Absent: cyanosis, edema - *Routine Skin Exam Present: intact, dry, warm - *Routine Neurological Exam Present: alert, oriented X3. Absent: motor deficit, pronator drift - Routine Psychiatric Exam Present: normal affect, normal thought process. Absent: homicidal ideation, auditory hallucinations Assessment and Plan (1) Epididymo-orchitis Status: Acute Category: Medical Code(s): N45.3 - Epididymo-orchitis - Assessment and plan all Dx Assessment and Plan for all problems:: Rounded with Dr. White, all orders per Dr. White: 1. Continue IV antibiotics 2. Awaiting urology to see
[2021-04-24 09:39] LABS: Chloride 108 mmol/L (98-107); Potassium 3.5 mmoL/L (3.5-5.1); Sodium 139 mmol/L (136-145)
[2021-04-24 09:42] LABS: Anion Gap 8.5 mEq/L (5-15); Blood Urea Nitrogen 17 mg/dl (9-20); Calcium 9.7 mg/dl (8.4-10.2); Carbon Dioxide 26 mmol/L (22.0-30.0); Creatinine Clearance Estimated 72 mL/min (50-200); Estimated Glomerular Filt Rate 164 ml/min (>60); GFR (African American) 198 ML/MIN (>60); Glucose 112 mg/dl (74-100)
[2021-04-24 10:47] LABS: Vancomycin,Peak 13.5 ug/ml (11-39)
--- NOTE | 2021-04-24 15:25 | HMH.CONS ---
*Admission Date: 04/22/21 *Reason for consult:: Epididymoorchitis *History of present illness: Patient is a 70-year-old white male admitted to the hospital yesterday with complaints of right-sided testicular pain. He has a history of epididymoorchitis and was seen last year for the above symptoms. His blood work showed a white count of 17.3 and a potassium of 2.5. He was admitted and placed on antibiotics and his potassium replaced. A scrotal ultrasound showed mild increased flow to the right testicle and epididymis consistent with epididymoorchitis. The testicle showed no masses and there is no evidence of torsion. Patient is very active at 71 years old and states he was throwing around 100 pound bags of feed a day or 2 prior to the testicular swelling. [facility] History Medical History: Reports:: Anxiety, Hypertension Denies:: Diabetes Mellitus Type 1, Diabetes Mellitus Type 2 *Have you ever received a pneumonia vaccine?: Yes *Have you received a flu vaccine this season?: Yes Other Surgeries: Yes: No Previous Surgery Amputation: No Fractures: No - *Social History Last grade of school completed: High school graduate Smoking Status: Current every day smoker Tobacco Type: cigarettes # Packs/Day (cigarettes): 1 Alcohol Intake: never Substance Use Type: denies use *Occupational Status:: employed Household Members: spouse *Travel in the last 8 weeks: None - Psychiatric History Pschychiatric History:: Reports:: Anxiety Family Hx:: No significant family history Review of Systems - Review of Systems Review of systems:: pertinent systems reviewed and negative unless documented below - *Neurologic Denies dizziness Meds Home Medications Medication Instructions Recorded Confirmed Type Amlodipine Besylate 5 mg PO DAILY 10/01/20 04/22/21 History hydroCHLOROthiazide [HCTZ 25mg 25 mg PO DAILY 10/01/20 04/22/21 History tab] Escitalopram Oxalate 20 mg PO DAILY 04/23/21 04/23/21 History Hydrocodone/Acetaminophen 1 tab PO DAILYP PRN 04/23/21 04/23/21 History [Hydrocodone-Acetamin 7.5-325] Ibuprofen [Ibuprofen 800mg 800 mg PO TIDP PRN 04/23/21 04/23/21 History Tablet] Allergies Allergy/AdvReac Type Severity Reaction Status Date / Time No Known Allergies Allergy Unverified 04/28/20 16:09 Exam Vital signs and Labs for Last 24 Hours: Temp Pulse Resp BP Pulse Ox 98.0 F 71 18 148/82 H 95 04/24/21 08:00 04/24/21 08:00 04/24/21 08:00 04/24/21 08:00 04/24/21 08:00 Laboratory Results - last 24 hr 04/24/21 06:29: WBC 12.9 H, RBC 4.25 L, Hgb 13.9 L, Hct 42.8, MCV 100.5 H, MCH 32.6 H, MCHC 32.5, RDW 15.3, Plt Count 193, MPV 9.8, Neut % (Auto) 79.2, Lymph % (Auto) 12.0, [place] % (Auto) 6.5, Eos % (Auto) 1.9, Baso % (Auto) 0.4, Neut # (Auto) 10.2 H, Lymph # (Auto) 1.5, [place] # (Auto) 0.8, Eos # (Auto) 0.3, Baso # (Auto) 0.1 04/24/21 09:19: Sodium 139, Potassium 3.5, Chloride 108 H, Carbon Dioxide 26, Anion Gap 8.5, BUN 17, Creatinine 0.50 L, Estimated Creat Clear 72, Estimated GFR 164, Est GFR ( Amer) 198 D, Glucose 112 H, Calcium 9.7 04/24/21 09:19: Vancomycin Peak 13.5 I & O for Last 24 hours: Intake & Output 04/21/21 04/22/21 04/23/21 04/24/21 23:59 23:59 23:59 23:59 Intake Total 360 / 420 2674 / 2674 1450 / 1450 Output Total 100 / 100 300 / 300 Balance 360 / 420 2574 / 2574 1150 / 1150 Weight 74.984 kg 74.984 kg 74.984 kg Microbiology Reports for the Last 24 Hours: Microbiology 04/22/21 15:00 Blood Blood Culture - Preliminary NO GROWTH AFTER 48 HOURS 04/22/21 14:50 Urine,Clean Catch Urine Culture - Final NO GROWTH AFTER 48 HOURS 04/22/21 15:00 Blood Blood Culture - Preliminary Gram Positive Cocci - Constitutional no acute distress - *Routine HEENT Exam Head: Present: normocephalic Eye: Present: EOMI, PERRL ENT: Present: mucous membranes moist - *Routine Neck Exa
[2021-04-24 15:29] VITALS: BP 145/73; PULSE 59; RESP 18; TEMP 37.1; O2SAT 95
--- NOTE | 2021-04-24 17:40 | PC.NURSE ---
Pt has done well this shift. Pt has c/o scrotal pain x2 this shift and was medicated per DEC w/ favorable results. Pt is urinating small amounts of dark, light jared urine. No other acute changes or complaints at this time. Will continue to monitor.
[2021-04-24 20:00] VITALS: BP 147/79; PULSE 60; RESP 20; TEMP 36.7; O2SAT 95
[2021-04-25 04:00] VITALS: BP 145/80; PULSE 62; RESP 18; TEMP 36.7; O2SAT 96
--- NOTE | 2021-04-25 04:20 | PC.NURSE ---
vancomycin dose for 04/24/21 due at 2300 was not given due to pending vancomycin trough which has been drawn. Jeet in lab states that their is only one machine that runs the vanc trough and it undergoing maintenance and once the maintenance was completed it would need to be QC'd through [facility] which is down until 0330 and then the specimen could be run and resulted. Spoke with Jeet at approximately 0415 and vanc trough was still not run and resulted.
[2021-04-25 05:00] VITALS: BMI 29.2
[2021-04-25 05:08] LABS: Vancomycin,Trough < 5.0 ug/mL (5.0-10.0)
[2021-04-25 08:00] VITALS: BP 172/79; PULSE 59; RESP 18; TEMP 36.6; O2SAT 96
[2021-04-25 08:18] LABS: Basophils % 0.5 % (0.1-2.0); Eosinophils # 0.2 K/mm3 (0.0-0.4); Eosinophils % 2.2 % (0.1-12.0); Hematocrit 41.6 % (42.0-52.0); Hemoglobin 14.5 g/dL (14.1-18.0); Lymphocytes % 11.1 % (10-50); Mean Corpuscular HGB Conc 34.8 g/dL (31.8-35.4); Mean Corpuscular Hemoglobin 34.2 pg (27.0-31.2); Mean Corpuscular Volume 98.3 fl (80-94); Mean Platelet Volume 9.8 fl (7.4-10.4); Monocytes # 0.4 K/mm3 (0.1-1.0); Monocytes % 4.4 % (1.7-9.3); Neutrophils # 7.2 K/mm3 (1.8-7.8); Neutrophils % 81.9 % (37.0-80.0); Platelet Count 207 K/mm3 (142-424); Red Blood Count 4.23 M/mm3 (4.60-6.20); White Blood Count 8.8 K/mm3 (4.8-10.8)
[2021-04-25 08:27] LABS: Anion Gap 8.1 mEq/L (5-15); Blood Urea Nitrogen 10 mg/dl (9-20); Calcium 9.5 mg/dl (8.4-10.2); Carbon Dioxide 25 mmol/L (22.0-30.0); Chloride 107 mmol/L (98-107); Creatinine Clearance Estimated 84 mL/min (50-200); Estimated Glomerular Filt Rate 164 ml/min (>60); GFR (African American) 198 ML/MIN (>60); Glucose 133 mg/dl (74-100); Potassium 3.1 mmoL/L (3.5-5.1); Sodium 137 mmol/L (136-145)
--- NOTE | 2021-04-25 09:07 | HMH.DCSUM ---
General - General Admission date:: 04/22/21 Discharge date: 04/25/21 HPI HPI: 70 yr old male presents to ED with c/o of groin pain. Patient states he believes he has a kidney or prostate infection. Pt states pain in his right testicle for 1 week, swelling of the right testicle began last night with dysuria for 4 days. Had chills yesterday, thinks he might have had a fever, but temperature not taken. Prior history of prostate infections pt states he has seen Dr. Jordan and Dr. Bojorquez.Pt admitted for urology consult and iv antibiotics. With close monitoring of infection Hospital Course Hospital Course: 70 yr old male presents to ED with c/o of groin pain. Patient states he believes he has a kidney or prostate infection. Pt states pain in his right testicle for 1 week, swelling of the right testicle began last night with dysuria for 4 days. Had chills yesterday, thinks he might have had a fever, but temperature not taken. Prior history of prostate infections pt states he has seen Dr. Jordan and Dr. Bojorquez.Pt admitted for urology consult and iv antibiotics. With close monitoring of infection 04/22/21 Scrotum US: FINDINGS: Right testicle: Right testicle measures 2.5 x 4.2 x 3.4 cm. Mild increased blood flow is noted to the right testicle and epididymis consistent with mild epididymal orchitis. Left testicle: Left testicle measures 2.0 x 4.1 x 2.2 cm. Scrotum: Mild right hydrocele. Other findings: No intratesticular masses. Blood flow is demonstrated to both testicles. No evidence of testicular torsion. IMPRESSION: 1. No intratesticular masses. 2. No evidence of testicular torsion. 3. Mild right hydrocele. 4. Mild increased blood flow is noted to the right testicle and epididymis consistent with mild epididymal orchitis. Electronically signed by Mati Richard DO Urology has seen and recommends: 70-year-old white male with epididymoorchitis. His recent strenuous physical activity is likely the causative factor. We discussed restriction of any strenuous activities for 2 weeks as well as scrotal support, anti-inflammatories and local heat to the scrotum. We will plan on seeing him back next week in follow-up. Continued antibiotics recommended as well. 70 YOM lying in bed, reports scrotum still painful, denies any concerns/needs during night. D/C to home discussed and he is agreeable to this. He has been inst to not take Lexapro while taking Zyvox and he verbalizes understanding. His blood culture has grown MRSA, he has rec Levoflox and Vanc IV while inpatient PLAN: 1. D/C home today 2. Zyvox and Levoflox PO 3. F/U PCP 1 week 4. F/U Urology 1 week 5. Hold Lexapro while taking Zyvox Objective Vital signs: Temp Pulse Resp BP Pulse Ox 97.9 F 59 L 18 172/79 H 96 04/25/21 08:00 04/25/21 08:00 04/25/21 08:00 04/25/21 08:00 04/25/21 08:00 no acute distress - *Routine HEENT Exam Head: Present: normocephalic Eye: Present: EOMI ENT: Present: mucous membranes moist - *Routine Neck Exam Present: trachea midline. Absent: tracheal deviation - *Routine Respiratory Exam Present: CTA bilaterally. Absent: accessory muscle use - *Routine Cardiovascular Exam Present: RRR - *Routine Abdominal Exam Present: soft, normoactive bowel sounds. Absent: tenderness, firm - *Routine Exam Testicular: Right swelling, Right tenderness - *Routine Extremities Exam Present: full ROM, pulses intact. Absent: cyanosis, clubbing, calf tenderness - *Routine Skin Exam Present: intact, dry, warm. Absent: cyanosis, erythema - *Routine Neurological Exam Present: alert, oriented X3. Absent: motor deficit, altered mental status - Routine Psychiatric Exam Present: normal affect, normal thought process. Absent: auditory hallucinations, visual hallucinations Results Labs on day of discharge: Labs from last 24 hours 04/25/21 04/25/21
--- NOTE | 2021-04-25 09:33 | PC.NURSE ---
LATE ENTRY 0812-Spoke w/ Alma in the lab. Verified name, , and room number for positive blood cultures (aerobic bottle) 0830- MD White notified during rounds, no new orders 0851- Spoke w/ Alma in the lab. Verified name, , and room number for positive blood cultures (anaerobic bottle) 0852- MD White notified during rounds. No new orders.
== END 2021-04-25 11:04 | DRG 872 ==
LOC: ER 16:38 → 2ND 17:08
PROVIDERS: Nurse Practitioner Family; Admitting Provider Emergency Medicine; Emergency Provider Emergency Medicine; PCP Nurse Practitioner; Visit Provider Emergency Medicine
DX: A41.02 Sepsis due to Methicillin resistant Staphylococcus aureus (principal); N45.3 Epididymo-orchitis; I10 Essential (primary) hypertension; F17.210 Nicotine dependence, cigarettes, uncomplicated; Z79.899 Other long term (current) drug therapy
CPT/HCPCS: 36415; 76870; 80048; 80053; 80202; 81001; 83605; 83735; 85007; 85025; 87040; 87077; 87086; 87186; 93005; 96365; 96375; 99285; 99291; J1956; J2405; J3370; U0003

== ENCOUNTER → 2021-05-25 13:32 | Outpatient (CLI) | payer MEDICARE, OTHER, SELFPAY ==
[2021-05-25 14:09] LABS: Anion Gap 12.9 mEq/L (5-15); Blood Urea Nitrogen 18 mg/dl (9-20); Calcium 10.7 mg/dl (8.4-10.2); Carbon Dioxide 28 mmol/L (22.0-30.0); Chloride 102 mmol/L (98-107); Estimated Glomerular Filt Rate 111 ml/min (>60); GFR (African American) 135 ML/MIN (>60); Glucose 99 mg/dl (74-100); Sodium 140 mmol/L (136-145)
[2021-05-25 15:39] LABS: Potassium 2.9 mmoL/L (3.5-5.1)
== END ==
PROVIDERS: Visit Provider Nurse Practitioner Family
DX: N45.3 Epididymo-orchitis (principal)
CPT/HCPCS: 80048

== ENCOUNTER → 2021-05-29 17:13 | Outpatient (CLI) | payer MEDICARE, OTHER, SELFPAY ==
[2021-05-29 18:53] LABS: Anion Gap 12.9 mEq/L (5-15); Blood Urea Nitrogen 18 mg/dl (9-20); Calcium 10.7 mg/dl (8.4-10.2); Carbon Dioxide 30 mmol/L (22.0-30.0); Chloride 100 mmol/L (98-107); Estimated Glomerular Filt Rate 95 ml/min (>60); GFR (African American) 115 ML/MIN (>60); Glucose 94 mg/dl (74-100); Potassium 3.9 mmoL/L (3.5-5.1); Sodium 139 mmol/L (136-145)
== END ==
PROVIDERS: Visit Provider Nurse Practitioner Family
DX: E87.6 Hypokalemia (principal)
CPT/HCPCS: 36415; 80048

== ENCOUNTER 2021-07-02 12:54 | Inpatient (IN) | payer MEDICARE, OTHER, SELFPAY ==
[2021-07-02] VITALS (7 sets, daily range): BP systolic 114–163; BP diastolic 70–98; PULSE 78–99; RESP 18–22; TEMP 36.4–36.7; O2SAT 94–99; BMI 27.2; BMI 26.2
--- NOTE | 2021-07-02 14:21 | XR_ITS ---
PROCEDURE: XR CHEST PORTABLE CLINICAL HISTORY: abd pain COMPARISON: CT CT ABDOMEN PELVIS W CON from 10/01/2020 FINDINGS: The cardiomediastinal silhouette and pulmonary vascularity are within normal limits. There are increased markings in both lung bases right greater than left which may be due to soft tissue attenuation and vascular crowding. Cannot exclude underlying infiltrate. No acute bony findings. IMPRESSION: Increased markings right lung bases possibly due to soft tissue attenuation. Cannot exclude underlying atelectasis or infiltrate. Please correlate with clinical parameters Dictated by: Peewee Negron MD 07/02/2021 15:23 Peewee Negron MD in [facility] 07/02/2021 15:23
[2021-07-02 14:31] LABS: Basophils % 0.2 % (0.1-2.0); Eosinophils % 0.3 % (0.1-12.0); Hematocrit 52.8 % (42.0-52.0); Lymphocytes # 0.7 K/mm3 (0.7-4.5); Lymphocytes % 4.7 % (10-50); Mean Corpuscular HGB Conc 34.1 g/dL (31.8-35.4); Mean Corpuscular Volume 99.5 fl (80-94); Mean Platelet Volume 9.5 fl (7.4-10.4); Monocytes # 0.5 K/mm3 (0.1-1.0); Monocytes % 3.4 % (1.7-9.3); Neutrophils # 13.2 K/mm3 (1.8-7.8); Neutrophils % 91.4 % (37.0-80.0); Platelet Count 235 K/mm3 (142-424); Red Cell Distribution Width 15.6 % (11.5-17.5); White Blood Count 14.5 K/mm3 (4.8-10.8)
[2021-07-02 14:37] LABS: Alanine Aminotransferase 15 U/L (12-78); Albumin/Globulin Ratio 1.3 (1.1-1.8); Alkaline Phosphatase 115 U/L (38-126); Aspartate Amino Transferase 25 U/L (17-59); Bilirubin,Total 1.7 mg/dl (0.2-1.3); Blood Urea Nitrogen 13 mg/dl (9-20); Calcium 11.2 mg/dl (8.4-10.2); Carbon Dioxide 28 mmol/L (22.0-30.0); Chloride 98 mmol/L (98-107); Estimated Glomerular Filt Rate 111 ml/min (>60); GFR (African American) 134 ML/MIN (>60); Globulin 3.2 g/dL (1.3-3.2); Glucose 174 mg/dl (74-100); Sodium 136 mmol/L (136-145); Total Protein,Serum 7.2 g/dl (6.3-8.2)
[2021-07-02 14:40] LABS: MANUAL DIFFERENTIAL MANUAL DIFFERENTIAL (MANUAL DIFF)
--- NOTE | 2021-07-02 14:46 | PC.NURSE ---
critical lab value K 3.0 dr stanford notified
--- NOTE | 2021-07-02 14:47 | CT_ITS ---
PROCEDURE: CT ABDOMEN PELVIS W CON CLINICAL INDICATION: pain COMPARISON: CT CT ABDOMEN PELVIS W CON from 10/01/2020 TECHNIQUE: IV Contrast: 75ML Isovue 370 Oral Contrast None Axial images obtained with sagittal and coronal reformats. All CT scans at the facility use one or more dose reduction, viz: automated exposure control, ma/kV adjustment per patient size (including targeted exams where dose is matched to indication, i.e. head), or iterative reconstruction technique. FINDINGS: LOWER THORAX: Coronary artery calcifications ABDOMEN & PELVIS: A well-circumscribed area of decreased density is present in the right hepatic lobe suggesting a small cyst at 12 mm. The spleen, adrenal glands, and kidneys have an unremarkable appearance. There is stranding of the peripancreatic fat with a small amount of fluid in the anterior peripancreatic region there is mild thickening of the right anterior pararenal fascia and there is thickening of the fat anterior to the transverse portion of the duodenum. These findings are compatible with acute pancreatitis. No obvious pancreatic necrosis. Unremarkable appendix. No intestinal obstruction or free air. The prostate is enlarged at 5.5 cm. There are postsurgical changes at the L3-L4 level of the lumbar spine. IMPRESSION: 1. Acute pancreatitis. No obvious pancreatic necrosis apparent. Dictated by: Peewee Negron MD 07/02/2021 16:03 Peewee Negron MD in [facility] 07/02/2021 16:03
[2021-07-02 15:03] LABS: Troponin I < 0.01 ng/ml (0.00-0.034)
[2021-07-02 15:16] LABS: Lipase 4388 U/L (23-300)
--- NOTE | 2021-07-02 15:27 | ECG_ITS ---
APPROVED REPORT Exam: Resting ECG HR:63 bpm ECG Measurements Heart Rate 63 AXES NM 166 P 67 QRSd 98 QRS 10 QT 422 T 58 QTc 431 Conclusion Normal sinus rhythm Incomplete right bundle branch block Late R wave progression Abnormal ECG Electronically signed by : Estuardo Alarcon MD 07/04/2021 07:32:37
--- NOTE | 2021-07-02 15:27 | PC.NURSE ---
Pt to rad.
[2021-07-02 15:32] LABS: Lymphocytes % 3 % (10-50); Monocytes % 6 % (2-9); Neutrophils % 91 % (42-76); Total Cells Counted 100
[2021-07-02 15:33] LABS: Macrocytosis 1+; Platelet Estimate Normal
--- NOTE | 2021-07-02 16:40 | PC.NURSE ---
at bed side
--- NOTE | 2021-07-02 16:41 | HMH.EDGENADL ---
ED Disposition Clinical Impression: Pancreatitis Qualifiers: Chronicity: acute Pancreatitis type: alcohol induced Acute pancreatitis complication: no infection or necrosis Qualified Code(s): K85.20 - Alcohol induced acute pancreatitis without necrosis or infection Disposition: Admitted as Observation Condition on Discharge: Good Instructions: DI for Acute Abdominal Pain Referrals: Iris Westbrook MD [Primary Care Provider] - Time of Disposition: 16:54 - Critical Care Critical Care Time: No Attestation: On 07/02/21, the high probability of a clinically significant, sudden or life threatening deterioration of the following system(s) required my full and direct attention, intervention and personal management. The time I documented below is in addition to time spent performing reported procedures but includes the following listed in this critical care notation. Medical Decision Making - Medical Records Medical records reviewed: Yes: I reviewed the patient's medical records. - Moise Inquiry Pt receiving controlled substance: No Vital Signs: 07/02/21 12:55 Temperature 97.9 F Temperature Source Oral Pulse Rate [Left Radial] 92 H Respiratory Rate 18 Blood Pressure [Right Arm] 138/89 Blood Pressure Mean [Right Arm] 105 Blood Pressure Source [Right Arm] Automatic Cuff Blood Pressure Position [Right Arm] Sitting 02 Sat by Pulse Oximetry 98 Oxygen Delivery Method Room Air - Lab Data Lab results reviewed: Yes: I reviewed the patient's lab results. Lab Results 07/02/21 13:55: WBC 14.5 H, RBC 5.30, Hgb 18.0, Hct 52.8 H, MCV 99.5 H, MCH 34.0 H, MCHC 34.1, RDW 15.6, Plt Count 235, MPV 9.5, Neut % (Auto) 91.4 H, Lymph % (Auto) 4.7 L, [place] % (Auto) 3.4, Eos % (Auto) 0.3, Baso % (Auto) 0.2, Neut # (Auto) 13.2 H, Lymph # (Auto) 0.7, [place] # (Auto) 0.5, Eos # (Auto) 0.0, Baso # (Auto) 0.0, Total Counted 100, Neutrophils % (Manual) 91 H, Lymphocytes % (Manual) 3 L, Monocytes % (Manual) 6, Platelet Estimate Normal, Macrocytosis 1+ 07/02/21 13:55: Sodium 136, Potassium 3.0 L, Chloride 98, Carbon Dioxide 28, Anion Gap 13.0, BUN 13, Creatinine 0.70, Estimated GFR 111, Est GFR ( Amer) 134, Glucose 174 H, Calcium 11.2 H, Total Bilirubin 1.7 H, AST 25, ALT 15, Alkaline Phosphatase 115, Troponin I < 0.01, Total Protein 7.2, Albumin 4.0, Globulin 3.2, Albumin/Globulin Ratio 1.3, Lipase 4388 H Result diagrams: 07/02/21 13:55 07/02/21 13:55 Orders (Tests/Meds): ED MEDICATIONS Generic Name Dose Route Start Last Admin Trade Name Freq PRN Reason Stop Dose Admin Lactated Ringer's 1,000 mls @ 999 mls/hr 07/02/21 16:45 Lactated Ringer's 1000 Ml Bag IV 07/02/21 17:45 .Q1H1M IBAN Discontinued Medications Generic Name Dose Route Start Last Admin Trade Name Freq PRN Reason Stop Dose Admin Iopamidol 75 ml 07/02/21 15:37 07/02/21 15:38 Iopamidol-370 (76%);100ml Bottle IV 07/02/21 15:38 75 ml ONCE ONE Administration Morphine Sulfate 2 mg 07/02/21 16:43 Morphine 2mg/Ml Syringe IV 07/02/21 16:44 ONCE ONE Ondansetron HCl 4 mg 07/02/21 14:55 07/02/21 16:46 Ondansetron 4mg/2ml Vial IV 07/02/21 14:56 4 mg ONCE ONE Administration Ondansetron HCl 4 mg 07/02/21 16:43 Ondansetron 4mg/2ml Vial IV 07/02/21 16:44 ONCE ONE Sodium Chloride 10 ml 07/02/21 15:37 07/02/21 15:38 Sodium Chloride 0.9% 10ml Syr (Rad Only) IV 07/02/21 15:38 10 ml ONCE ONE Administration ORDERS Category Date Time Status Troponin I Q3H Lab 07/02/21 17:30 Ordered Urinalysis and Microscopic Stat Lab 07/02/21 14:21 Ordered - Radiology Data #1 Image(s): Chest Image Reviewed: Yes I reviewed the patient's radiology results Increased markings right lung bases possibly due to soft tissue attenuation. Cannot exclude underlying atelectasis or infiltrate. Please correlate with clinical parameters - CT Data CT Scan: Abdomen, Pelvis Time Received: 16:[address] Reviewed: Yes: I have
--- NOTE | 2021-07-02 17:07 | PC.NURSE ---
ATTEMPTED TO CONTACT DAUGHTER FACUNDO FOR MED REC, NO ANSWER.
[2021-07-02 20:03] LABS: Coronavirus 19, PCR Not Detected (NotDetected); Influenza A, PCR Not Detected (NotDetected); Influenza B, PCR Not Detected (NotDetected)
--- NOTE | 2021-07-02 21:19 | PC.NURSE ---
PT ARRIVED TO FLOOR VIA W/C FROM ED STAFF AT 2118
[2021-07-03] VITALS (8 sets, daily range): BP systolic 139–162; BP diastolic 79–84; PULSE 80–105; RESP 16–22; TEMP 36.6–38; O2SAT 90–92; BMI 26.2
[2021-07-03 02:23] LABS: Microscopic, Urine URINE MICROSCOPIC (MICROSCOPIC)
[2021-07-03 02:27] LABS: Appearance,Urine SL CLOUDY (Clear); Blood, Urine TRACE-L (Negative); Color,Urine DK YELLOW (Yellow); Glucose,Urine (UA) Negative (Negative); Ketones,Urine Negative (Negative); Leukocyte Esterase,Urine Negative (Negative); Nitrate,Urine Negative (Negative); PH,Urine 6.5 (5.0-8.5); Protein,Urine TRACE (Negative); Specific Gravity, Urine 1.015 (1.005-1.030)
[2021-07-03 02:28] LABS: Bilirubin,Urine Negative (Negative)
[2021-07-03 02:45] LABS: WBC,Urine Occasional #/hpf (0-3)
[2021-07-03 02:46] LABS: Bacteria,Urine Trace /lpf
[2021-07-03 07:18] LABS: Basophils % 0.1 % (0.1-2.0); Eosinophils # 0.1 K/mm3 (0.0-0.4); Eosinophils % 0.5 % (0.1-12.0); Hematocrit 49.7 % (42.0-52.0); Hemoglobin 16.8 g/dL (14.1-18.0); Lymphocytes # 0.8 K/mm3 (0.7-4.5); Lymphocytes % 4.5 % (10-50); Mean Corpuscular HGB Conc 33.9 g/dL (31.8-35.4); Mean Corpuscular Hemoglobin 33.9 pg (27.0-31.2); Mean Platelet Volume 9.7 fl (7.4-10.4); Monocytes # 0.8 K/mm3 (0.1-1.0); Monocytes % 4.1 % (1.7-9.3); Neutrophils # 16.9 K/mm3 (1.8-7.8); Neutrophils % 90.8 % (37.0-80.0); Platelet Count 206 K/mm3 (142-424); Red Blood Count 4.97 M/mm3 (4.60-6.20); Red Cell Distribution Width 15.9 % (11.5-17.5); White Blood Count 18.6 K/mm3 (4.8-10.8)
[2021-07-03 07:19] LABS: Alanine Aminotransferase 11 U/L (12-78); Albumin Level 3.4 g/dl (3.5-5.0); Albumin/Globulin Ratio 1.2 (1.1-1.8); Alkaline Phosphatase 86 U/L (38-126); Anion Gap 7.9 mEq/L (5-15); Aspartate Amino Transferase 20 U/L (17-59); Bilirubin,Total 2.1 mg/dl (0.2-1.3); Blood Urea Nitrogen 19 mg/dl (9-20); Calcium 10.2 mg/dl (8.4-10.2); Carbon Dioxide 29 mmol/L (22.0-30.0); Chloride 99 mmol/L (98-107); Creatinine Clearance Estimated 74 mL/min (50-200); Estimated Glomerular Filt Rate 111 ml/min (>60); GFR (African American) 134 ML/MIN (>60); Globulin 2.8 g/dL (1.3-3.2); Glucose 109 mg/dl (74-100); Lactate Dehydrogenase 202 U/L (313-618); Magnesium 1.2 mg/dl (1.6-2.3); Sodium 133 mmol/L (136-145); Total Protein,Serum 6.2 g/dl (6.3-8.2)
[2021-07-03 07:24] LABS: Potassium 2.9 mmoL/L (3.5-5.1)
[2021-07-03 07:27] LABS: MANUAL DIFFERENTIAL MANUAL DIFFERENTIAL (MANUAL DIFF)
--- NOTE | 2021-07-03 07:31 | P.CONPHA_ITS ---
[facility] Pharmacy VTE Monitoring - Patient Demographics Admission date: 07/02/21 Report Date: 07/03/21 Time: 07:31 Allergies/Adverse Reactions: Patient Allergies No Known Allergies Allergy (Verified 05/30/21 09:30) Height: 1.73 m Weight: 78.65 kg Patient Problems: Current Active Problems Pancreatitis (Acute) - VTE Risk Labs: VTE Related Lab Results Hgb 16.8 g/dL (14.1-18.0) 07/03/21 06:30 Hct 49.7 % (42.0-52.0) 07/03/21 06:30 Plt Count 206 K/mm3 (142-424) 07/03/21 06:30 BUN 19 mg/dl (9-20) D 07/03/21 06:30 Creatinine 0.70 mg/dl (0.66-1.25) 07/03/21 06:30 Estimated Creat Clear 74 mL/min (50-200) 07/03/21 06:30 Was VTE Risk Assessment Performed: Yes VTE Score: 2 - Prophylaxis VTE Prophylaxis Ordered?: Yes Types of VTE Prophylaxis: IPCS Thigh High, Pharmacological Location of Applied Device: Bilateral Lower Extremeties Pharmacologic Type: Enoxaparin
--- NOTE | 2021-07-03 08:09 | HMH.HP ---
*Admission Date: 07/02/21 *Chief complaint: abdominal pain *History of present illness: 71yo M with past medical history of pancreatitis secondary to alcohol presented emergency department concern for pancreatitis. Patient reports he drinks daily. Sometimes less, sometimes more per his report. More would be a couple sixpacks. On initial work-up found to have labs concerning for pancreatitis with elevated lipase in the 4000 range. No fever, diarrhea, chest pain. Complains of abdominal pain with mild bloating and recurrent episodes of vomiting. Denies any blood in his emesis. Reports normal bowel movements. States he is not tolerating p.o. intake well at this time. Nothing improves his pain. Attempting to eat or bend over makes it worse. Admitted for inpatient management. [facility] History I have reviewed the patient's past medical history: Yes Medical History: Reports:: Anxiety, Hypertension Denies:: Cancer, Diabetes Mellitus Type 1, Diabetes Mellitus Type 2, MRSA *Have you ever received a pneumonia vaccine?: No *Have you received a flu vaccine this season?: No Other Surgeries: Yes: No Previous Surgery Amputation: No Fractures: No - *Social History Smoking Status: Never smoker Tobacco Type: cigarettes # Packs/Day (cigarettes): 1 Alcohol Intake: current Alcohol Intake Frequency:: a few times a week Substance Use Type: denies use *Occupational Status:: employed Housing: house Household Members: spouse *Travel in the last 8 weeks: None - Psychiatric History Pschychiatric History:: Reports:: Anxiety Family Hx:: No significant family history Review of Systems - Review of Systems Review of systems:: pertinent systems reviewed and negative unless documented below (14 point review of systems performed, pertinent positives and negatives as per HPI) Meds Home Medications Medication Instructions Recorded Confirmed Type Amlodipine Besylate 5 mg PO DAILY 10/01/20 05/30/21 History hydroCHLOROthiazide [HCTZ 25mg 25 mg PO DAILY 10/01/20 05/30/21 History tab] Escitalopram Oxalate 20 mg PO DAILY 04/23/21 05/30/21 History Hydrocodone/Acetaminophen 1 tab PO DAILYP PRN 04/23/21 05/30/21 History [Hydrocodone-Acetamin 7.5-325] Ibuprofen [Ibuprofen 800mg 800 mg PO TIDP PRN 04/23/21 05/30/21 History Tablet] Linezolid [Zyvox 600mg Tablet] 600 mg PO BID 12 Days #24 tab 04/25/21 05/30/21 Rx levoFLOXacin [Levofloxacin 750MG 750 mg PO DAILY 8 Days #8 tab 04/25/21 05/30/21 Rx Tablet*] potassium chloride 20 mEq 20 meq PO DAILY #3 tab 05/25/21 05/30/21 Rx tablet,extended release Allergies Allergy/AdvReac Type Severity Reaction Status Date / Time No Known Allergies Allergy Verified 05/30/21 09:30 Exam Vital signs and Labs for Last 24 Hours: Temp Pulse Resp BP Pulse Ox 97.8 F 104 H 20 145/80 H 90 L 07/03/21 04:00 07/03/21 04:00 07/03/21 04:00 07/03/21 04:00 07/03/21 04:00 Laboratory Results - last 24 hr 07/02/21 13:55: WBC 14.5 H, RBC 5.30, Hgb 18.0, Hct 52.8 H, MCV 99.5 H, MCH 34.0 H, MCHC 34.1, RDW 15.6, Plt Count 235, MPV 9.5, Neut % (Auto) 91.4 H, Lymph % (Auto) 4.7 L, [place] % (Auto) 3.4, Eos % (Auto) 0.3, Baso % (Auto) 0.2, Neut # (Auto) 13.2 H, Lymph # (Auto) 0.7, [place] # (Auto) 0.5, Eos # (Auto) 0.0, Baso # (Auto) 0.0, Total Counted 100, Neutrophils % (Manual) 91 H, Lymphocytes % (Manual) 3 L, Monocytes % (Manual) 6, Platelet Estimate Normal, Macrocytosis 1+ 07/02/21 13:55: Sodium 136, Potassium 3.0 L, Chloride 98, Carbon Dioxide 28, Anion Gap 13.0, BUN 13, Creatinine 0.70, Estimated GFR 111, Est GFR ( Amer) 134, Glucose 174 H, Calcium 11.2 H, Total Bilirubin 1.7 H, AST 25, ALT 15, Alkaline Phosphatase 115, Troponin I < 0.01, Total Protein 7.2, Albumin 4.0, Globulin 3.2, Albumin/Globulin Ratio 1.3, Lipase 4388 H 07/02/21 20:01: SARS-CoV-2 (PCR) Not detected, Influenza A Untype (PCR) Not detected, Influenza Type B (PCR) Not detected 07/03/21 02:00: Urine Color Dk yellow, Urine Appearance S
--- NOTE | 2021-07-03 09:33 | HMH.PHAINT ---
MEDICATION RECONCILIATION COMPLETED ON PATIENT USING EXTERNAL FILL HISTORY FROM PHARMACY. -JER HERNANDEZ, BLUED
[2021-07-03 09:55] LABS: Hypochromasia 1+; Lymphocytes % 3 % (10-50); Macrocytosis 1+; Monocytes % 3 % (2-9); Neutrophils % 94 % (42-76); Platelet Estimate Normal; Total Cells Counted 100
--- NOTE | 2021-07-03 17:00 | PC.NURSE ---
No acute changes. Remains on room air. Lungs CTA. Abdomen soft, round, tender on palpation. Has reported abdominal pain, medicated per MAR w/ verbalized improvement of symptom. No c/o nausea. Appetite poor. Ambulates w/ standby assistance in room. No BM this shift. Urine noted to be jared, clear. He is currently sitting up in chair. Call noel w/in reach. No needs voiced. Pt's daughter called this AM and was updated on plan of care. Password was set up as well, Heidy .
[2021-07-03 17:54] LABS: Chol/HDL Ratio 5.2 (1-3.5); Cholesterol 146 mg/dl (140-200); HDL Cholesterol 28 mg/dl (40-60); Triglycerides 68 mg/dl (30-150); VLDL Cholesterol 14 mg/dL (0-40)
[2021-07-03 18:05] LABS: Direct LDL Cholesterol 96.58 mg/dL (100-129)
[2021-07-03 18:52] LABS: Chloride 101 mmol/L (98-107); Potassium 3.3 mmoL/L (3.5-5.1); Sodium 134 mmol/L (136-145)
[2021-07-03 18:55] LABS: Blood Urea Nitrogen 20 mg/dl (9-20); Creatinine Clearance Estimated 74 mL/min (50-200); Estimated Glomerular Filt Rate 132 ml/min (>60); GFR (African American) 160 ML/MIN (>60)
[2021-07-03 18:56] LABS: Anion Gap 9.3 mEq/L (5-15); Calcium 9.6 mg/dl (8.4-10.2); Carbon Dioxide 27 mmol/L (22.0-30.0); Glucose 106 mg/dl (74-100); Magnesium 1.7 mg/dl (1.6-2.3)
[2021-07-04] VITALS: BP 150/74; PULSE 102; RESP 18; TEMP 37.3; O2SAT 92
[2021-07-04 04:00] VITALS: BP 158/78; PULSE 89; RESP 22; TEMP 37.7; O2SAT 92
--- NOTE | 2021-07-04 04:54 | PC.NURSE ---
No acute changes this shift. Pt has rested well t/o shift. 2x complaints of pain in abdomen, tx per DEC. Pt reported improvement in pain. Pt currently resting in bed. Call light within reach. Will continue to monitor.
[2021-07-04 05:17] VITALS: BMI 28.4
--- NOTE | 2021-07-04 07:12 | HMH.ACPN2 ---
Internal Medicine - PN: Subj *Date: 07/04/21 *Time: 08:31 Interval history: Patient feeling somewhat better overnight. Had low fever of 100.4, suspect secondary to inflammation from pancreatitis. Denies any nausea or vomiting. No bowel movement since admission. Tolerating Jell-O and clear liquids. States it feels like it settles lower in the stomach but no increased pain. IV fluids stopped overnight. Urine remains quite concentrated and dark in urinal at bedside. Denies shortness of breath or chest pain. Exam Vital signs and Labs for Last 24 Hours: Temp Pulse Resp BP Pulse Ox 99.8 F H 89 22 158/78 H 92 L 07/04/21 04:00 07/04/21 04:00 07/04/21 04:00 07/04/21 04:00 07/04/21 04:00 Laboratory Results - last 24 hr 07/03/21 06:30: WBC 18.6 H D, RBC 4.97, Hgb 16.8, Hct 49.7, MCV 100.0 H, MCH 33.9 H, MCHC 33.9, RDW 15.9, Plt Count 206, MPV 9.7, Neut % (Auto) 90.8 H, Lymph % (Auto) 4.5 L, [place] % (Auto) 4.1, Eos % (Auto) 0.5, Baso % (Auto) 0.1, Neut # (Auto) 16.9 H, Lymph # (Auto) 0.8, [place] # (Auto) 0.8, Eos # (Auto) 0.1, Baso # (Auto) 0.0, Total Counted 100, Neutrophils % (Manual) 94 H, Lymphocytes % (Manual) 3 L, Monocytes % (Manual) 3, Platelet Estimate Normal, Hypochromasia 1+, Macrocytosis 1+ 07/03/21 06:30: Triglycerides 68, Cholesterol 146, LDL Cholesterol Direct 96.58 L, VLDL Cholesterol 14, HDL Cholesterol 28 L, Cholesterol/HDL Ratio 5.2 H 07/03/21 06:30: Sodium 133 L, Potassium 2.9 L*, Chloride 99, Carbon Dioxide 29, Anion Gap 7.9, BUN 19 D, Creatinine 0.70, Estimated Creat Clear 74, Estimated GFR 111, Est GFR ( Amer) 134, Glucose 109 H D, Calcium 10.2, Magnesium 1.2 L, Total Bilirubin 2.1 H, AST 20, ALT 11 L D, Alkaline Phosphatase 86, Lactate Dehydrogenase 202 L, Total Protein 6.2 L, Albumin 3.4 L D, Globulin 2.8, Albumin/Globulin Ratio 1.2 07/03/21 18:16: Sodium 134 L, Potassium 3.3 L, Chloride 101, Carbon Dioxide 27, Anion Gap 9.3, BUN 20, Creatinine 0.60 L, Estimated Creat Clear 74, Estimated GFR 132, Est GFR ( Amer) 160, Glucose 106 H, Calcium 9.6, Magnesium 1.7 D I & O for Last 24 hours: Intake & Output 07/01/21 07/02/21 07/03/21 07/04/21 23:59 23:59 23:59 23:59 Intake Total 2450 / 2450 1736 / 1736 Output Total 200 / 200 Balance 2450 / 2450 1536 / 1536 Weight 78.653 kg 78.65 kg 85.049 kg Narrative: - Constitutional NAD distress, average body habitus - *Routine HEENT Exam Head: Present: normocephalic Eye: Present: EOMI, PERRL ENT: Present: mucous membranes moist - *Routine Neck Exam Present: supple. Absent: lymphadenopathy - *Routine Respiratory Exam Present: CTA bilaterally, rhonchi (that clear with cough) - *Routine Cardiovascular Exam Present: RRR - *Routine Abdominal Exam Present: soft, normoactive bowel sounds, tenderness (Diffuse tenderness, worse in left upper quadrant, rebound present. Referred pain when palpating on right abdomen) - *Routine Extremities Exam Absent: cyanosis, clubbing, edema - *Routine Skin Exam Present: warm. Absent: rash - *Routine Neurological Exam Present: alert, oriented X3 Assessment and Plan (1) Acute alcoholic pancreatitis Status: Acute Category: Medical Code(s): K85.20 - Alcohol induced acute pancreatitis without necrosis or infection (2) Hypokalemia Status: Acute Category: Medical Code(s): E87.6 - Hypokalemia (3) Hypomagnesemia Status: Acute Category: Medical Code(s): E83.42 - Hypomagnesemia (4) Essential hypertension Status: Chronic Category: Medical Code(s): I10 - Essential (primary) hypertension - Assessment and plan all Dx Assessment and Plan for all problems:: 71-year-old male with history of alcoholism who presents with acute alcoholic pancreatitis to the ER. States this is his second episode this year. Complains of left upper quadrant pain most prominently however abdominal pain throughout. Mild nausea. Likes to drink V[employer]ul[employer] hard lemonade. Denies any vomiting, seth
[2021-07-04 07:13] LABS: Basophils % 0.2 % (0.1-2.0); Eosinophils # 0.2 K/mm3 (0.0-0.4); Eosinophils % 0.9 % (0.1-12.0); Hematocrit 40.7 % (42.0-52.0); Hemoglobin 13.7 g/dL (14.1-18.0); Lymphocytes # 0.7 K/mm3 (0.7-4.5); Mean Corpuscular HGB Conc 33.7 g/dL (31.8-35.4); Mean Corpuscular Hemoglobin 34.2 pg (27.0-31.2); Mean Corpuscular Volume 101.5 fl (80-94); Mean Platelet Volume 9.3 fl (7.4-10.4); Monocytes # 0.7 K/mm3 (0.1-1.0); Monocytes % 4.2 % (1.7-9.3); Neutrophils # 15.7 K/mm3 (1.8-7.8); Neutrophils % 90.8 % (37.0-80.0); Platelet Count 173 K/mm3 (142-424); Red Blood Count 4.01 M/mm3 (4.60-6.20); Red Cell Distribution Width 16.1 % (11.5-17.5); White Blood Count 17.2 K/mm3 (4.8-10.8)
[2021-07-04 07:17] LABS: Alanine Aminotransferase 9 U/L (12-78); Albumin Level 2.7 g/dl (3.5-5.0); Albumin/Globulin Ratio 1.1 (1.1-1.8); Alkaline Phosphatase 70 U/L (38-126); Aspartate Amino Transferase 18 U/L (17-59); Bilirubin,Total 2.8 mg/dl (0.2-1.3); Blood Urea Nitrogen 17 mg/dl (9-20); Calcium 9.3 mg/dl (8.4-10.2); Carbon Dioxide 27 mmol/L (22.0-30.0); Chloride 100 mmol/L (98-107); Creatinine Clearance Estimated 80 mL/min (50-200); Estimated Glomerular Filt Rate 163 ml/min (>60); GFR (African American) 198 ML/MIN (>60); Globulin 2.5 g/dL (1.3-3.2); Glucose 107 mg/dl (74-100); Lactate Dehydrogenase 205 U/L (313-618); Magnesium 1.8 mg/dl (1.6-2.3); Sodium 132 mmol/L (136-145); Total Protein,Serum 5.2 g/dl (6.3-8.2)
[2021-07-04 07:29] LABS: MANUAL DIFFERENTIAL MANUAL DIFFERENTIAL (MANUAL DIFF)
[2021-07-04 08:00] VITALS: BP 156/86; PULSE 89; RESP 20; TEMP 37.1; O2SAT 94
[2021-07-04 08:34] LABS: Anion Gap 8.3 mEq/L (5-15); Potassium 3.3 mmoL/L (3.5-5.1)
[2021-07-04 12:10] LABS: Lymphocytes % 3 % (10-50); Monocytes % 3 % (2-9); Neutrophils % 94 % (42-76); Platelet Estimate Normal; Total Cells Counted 100
--- NOTE | 2021-07-04 15:32 | PC.NURSE ---
Reassessment completed. Patient has rested on and off today. Pain medication given twice per mar- abdominal pain. Lungs cta and bowel sounds hypoactive. Denies numbness and tingling. pulses 2+ and cap refill <3 seconds. Denies nausea/vomiting. Tolerating diet well. No needs voiced.
[2021-07-04 16:00] VITALS: BP 139/78; PULSE 81; RESP 18; TEMP 37.2; O2SAT 90
--- NOTE | 2021-07-04 18:03 | PC.NURSE ---
tolerated bland diet well so far.
[2021-07-04 18:10] VITALS: BMI 28.3
--- NOTE | 2021-07-04 18:16 | PC.NURSE ---
patients urine output this shift has been dark jared in color.
[2021-07-04 20:00] VITALS: BP 134/69; PULSE 79; RESP 18; TEMP 36.8; O2SAT 93
--- NOTE | 2021-07-05 03:37 | PC.NURSE ---
No acute changes this shift. Pt c/o of pain x2 this shift admin meds per MAR with relief. Pt uses urinal to void, urine has been light jared in color t/o shift. VSS, call light within reach, will continue to monitor.
[2021-07-05 03:51] VITALS: BP 144/84; PULSE 80; RESP 18; TEMP 36.8; O2SAT 91
[2021-07-05 05:25] VITALS: BMI 27.4
[2021-07-05 07:26] LABS: Basophils % 0.2 % (0.1-2.0); Eosinophils # 0.3 K/mm3 (0.0-0.4); Eosinophils % 2.1 % (0.1-12.0); Hematocrit 39.6 % (42.0-52.0); Hemoglobin 13.2 g/dL (14.1-18.0); Lymphocytes # 0.9 K/mm3 (0.7-4.5); Lymphocytes % 6.5 % (10-50); Mean Corpuscular HGB Conc 33.4 g/dL (31.8-35.4); Mean Corpuscular Hemoglobin 33.9 pg (27.0-31.2); Mean Corpuscular Volume 101.6 fl (80-94); Mean Platelet Volume 10.1 fl (7.4-10.4); Monocytes # 0.7 K/mm3 (0.1-1.0); Monocytes % 5.1 % (1.7-9.3); Neutrophils % 86.1 % (37.0-80.0); Platelet Count 180 K/mm3 (142-424); White Blood Count 13.9 K/mm3 (4.8-10.8)
[2021-07-05 07:28] LABS: Anion Gap 8.2 mEq/L (5-15); Blood Urea Nitrogen 9 mg/dl (9-20); Calcium 9.4 mg/dl (8.4-10.2); Carbon Dioxide 27 mmol/L (22.0-30.0); Chloride 102 mmol/L (98-107); Creatinine Clearance Estimated 78 mL/min (50-200); Estimated Glomerular Filt Rate 163 ml/min (>60); GFR (African American) 198 ML/MIN (>60); Glucose 102 mg/dl (74-100); Magnesium 1.6 mg/dl (1.6-2.3); Potassium 3.2 mmoL/L (3.5-5.1); Sodium 134 mmol/L (136-145)
[2021-07-05 07:39] LABS: MANUAL DIFFERENTIAL MANUAL DIFFERENTIAL (MANUAL DIFF)
--- NOTE | 2021-07-05 07:48 | HMH.DCSUM ---
General - General Admission date:: 07/02/21 Discharge date: 07/05/21 HPI HPI: 71yo M with past medical history of pancreatitis secondary to alcohol presented emergency department concern for pancreatitis. Patient reports he drinks daily. Sometimes less, sometimes more per his report. More would be a couple sixpacks. On initial work-up found to have labs concerning for pancreatitis with elevated lipase in the 4000 range. No fever, diarrhea, chest pain. Complains of abdominal pain with mild bloating and recurrent episodes of vomiting. Denies any blood in his emesis. Reports normal bowel movements. States he is not tolerating p.o. intake well at this time. Nothing improves his pain. Attempting to eat or bend over makes it worse. Admitted for inpatient management. Hospital Course Hospital Course: Admitted for acute pancreatitis secondary to alcoholism. Discussed alcohol cessation and risk factor of recurring episodes if he continues to drink. Patient states understanding. States he knows he needs to stop. No interest in rehab at this time. No withdrawal symptoms during hospitalization. Noted to have potassium and magnesium deficits, treated both IV and oral during admission. Levels normalized. Tolerated advancement in diet from bowel rest for 24 hours to bland diet on day of discharge. Medically stable for discharge home to continue to convalesce. Follow-up with his primary care physician in the next 1 to 2 weeks Sent with Toradol for pain control. Examined on day of discharge. Objective Vital signs: Temp Pulse Resp BP Pulse Ox 98.3 F 80 18 144/84 H 91 L 07/05/21 03:51 07/05/21 03:51 07/05/21 03:51 07/05/21 03:51 07/05/21 03:51 Narrative: - Constitutional NAD, average body habitus - *Routine HEENT Exam Head: Present: normocephalic Eye: Present: EOMI, PERRL ENT: Present: mucous membranes moist - *Routine Neck Exam Present: supple. Absent: lymphadenopathy - *Routine Respiratory Exam Present: CTA bilaterally, rhonchi (that clear with cough) - *Routine Cardiovascular Exam Present: RRR - *Routine Abdominal Exam Present: soft, normoactive bowel sounds, tenderness intervally improved(Diffuse tenderness, worse in left upper quadrant, rebound present. Referred pain when palpating on right abdomen) - *Routine Extremities Exam Absent: cyanosis, clubbing, edema - *Routine Skin Exam Present: warm. Absent: rash - *Routine Neurological Exam Present: alert, oriented X3 Results Labs on day of discharge: Labs from last 24 hours 07/05/21 07/05/21 07/04/21 06:45 06:45 06:42 WBC 13.9 H RBC 3.90 L Hgb 13.2 L Hct 39.6 L MCV 101.6 H MCH 33.9 H MCHC 33.4 RDW 16.0 Plt Count 180 MPV 10.1 Neut % (Auto) 86.1 H Lymph % (Auto) 6.5 L [place] % (Auto) 5.1 Eos % (Auto) 2.1 Baso % (Auto) 0.2 Neut # (Auto) 12.0 H Lymph # (Auto) 0.9 [place] # (Auto) 0.7 Eos # (Auto) 0.3 Baso # (Auto) 0.0 Total Counted Neutrophils % (Manual) Lymphocytes % (Manual) Monocytes % (Manual) Platelet Estimate Sodium 134 L Potassium 3.2 L 3.3 L Chloride 102 Carbon Dioxide 27 Anion Gap 8.2 8.3 BUN 9 D Creatinine 0.50 L Estimated Creat Clear 78 Estimated GFR 163 Est GFR ( Amer) 198 Glucose 102 H Calcium 9.4 Magnesium 1.6 D 07/04/21 06:42 WBC RBC Hgb Hct MCV MCH MCHC RDW Plt Count MPV Neut % (Auto) Lymph % (Auto) [place] % (Auto) Eos % (Auto) Baso % (Auto) Neut # (Auto) Lymph # (Auto) [place] # (Auto) Eos # (Auto) Baso # (Auto) Total Counted 100 Neutrophils % (Manual) 94 H Lymphocytes % (Manual) 3 L Monocytes % (Manual) 3 Platelet Estimate Normal Sodium Potassium Chloride Carbon Dioxide Anion Gap BUN Creatinine Estimated Creat Clear Estimated GFR Est GFR ( Amer) Glucose Calcium Magnesium DS: Di
[2021-07-05 08:12] LABS: Eosinophils % 1 % (0-3); Lymphocytes % 3 % (10-50); Monocytes % 5 % (2-9); Neutrophils % 91 % (42-76); Total Cells Counted 100
[2021-07-05 08:13] LABS: Hypochromasia 2+; Macrocytosis 1+; Platelet Estimate Normal
== END 2021-07-05 09:59 | disposition home or self-care (01) | DRG 440 ==
LOC: ER 16:54 → 2ND 20:21
PROVIDERS: Internal Medicine Adolescent Medicine; Admitting Provider Internal Medicine Adolescent Medicine; Emergency Provider Family Medicine; PCP Nurse Practitioner; Visit Provider Internal Medicine Adolescent Medicine
DX: K85.20 Alcohol induced acute pancreatitis without necrosis or infection (principal); Z20.822 Contact with and (suspected) exposure to COVID-19; E83.42 Hypomagnesemia; I10 Essential (primary) hypertension; E87.6 Hypokalemia
CPT/HCPCS: 36415; 71045; 74177; 80048; 80053; 80061; 81001; 83615; 83690; 83735; 84484; 85007; 85025; 93005; 96365; 96375; 96376; 99283; C9803; J2405; Q9967; U0003; U0005

== ENCOUNTER → 2021-12-11 11:06 | Outpatient (CLI) | payer MEDICARE, OTHER, SELFPAY ==
[2021-12-11 12:59] LABS: Estimated Glomerular Filt Rate 111 ml/min (>60); GFR (African American) 134 ML/MIN (>60)
[2021-12-12 11:38] LABS: Blood Urea Nitrogen 13 mg/dl (9-20)
== END ==
PROVIDERS: Visit Provider Nurse Practitioner Family
DX: R31.9 Hematuria, unspecified (principal)
CPT/HCPCS: 36415; 82565; 84520

== ENCOUNTER → 2021-12-12 10:06 | Outpatient (CLI) | payer MEDICARE, OTHER, SELFPAY ==
--- NOTE | 2021-12-12 10:50 | CT_ITS ---
FINAL REPORT TECHNIQUE: After the administration of oral and intravenous contrast, axial images were obtained through the abdomen and pelvis by computed tomography. The study was performed with techniques to keep radiation dose as low as reasonably achievable, (ALARA). Individual dose reduction techniques using automated exposure control or adjustment of mA and/or kV according to the patient's size were employed. CLINICAL HISTORY: HEMATURIA COMPARISON: July 02, 2021 FINDINGS: Abdomen: There is chronic scarring at the lung bases. There is a benign-appearing cyst in the right lobe of the liver measuring 1 cm. The liver parenchyma is otherwise homogeneous. The gallbladder is present. The spleen, pancreas, and adrenals appear unremarkable. There are small benign-appearing cysts in the kidneys bilaterally. The aorta is normal in caliber. There is no free fluid or adenopathy. Pelvis: The appendix is normal. The urinary bladder is unremarkable. The prostate is enlarged measuring up to 5.2 cm in diameter. There is no free fluid or adenopathy. There is streak artifact from posterior fusion hardware of the lower lumbar spine. IMPRESSION: 1. No acute intra-abdominal process. 2. Benign-appearing cyst in the right lobe of the liver. 3. Bilateral renal cysts. 4. Enlarged prostate. Reviewed, Interpreted and Dictated by Rey Bonds MD Transcribed by LULU Schmidt Authenticated by eRy Bonds MD on 12/12/2021 01:13:[address] [facility]
== END ==
PROVIDERS: PCP Nurse Practitioner; Visit Provider Orthopaedic Surgery Pediatric Orthopaedic Surgery
DX: R31.9 Hematuria, unspecified (principal)
CPT/HCPCS: 74177; Q9967